=== PATIENT | female | born 1980 | race Caucasian/White ===

== ENCOUNTER 2018-06-22 16:38 | Emergency (ER) | payer BC, MEDICAID ==
--- NOTE | 2018-06-22 17:15 | EDM.PDOC ---
ED HPI GENERAL MEDICAL PROBLEM - General Chief Complaint: Back Pain or Injury Stated Complaint: BACK PAIN ON RT SIDE AND GOING DOWN THRU HER LEG Time Seen by Provider: 06/22/18 17:08 - History of Present Illness INITIAL COMMENTS - FREE TEXT/NARRATIVE: HISTORY AND PHYSICAL: History of present illness: Patient is a 37-year-old female with history chronic back pain who presents with a concern of left lower back pain slightly worse over the last week patient on multiple medicines for pain management and has a chronic pain syndrome patient is also on Suboxone. Patient states she's had some stress incontinence of bladder she states she's also felt slightly constipated she's had no numbness or weakness no new trauma or other complaints. Review of systems: As per history of present illness and below otherwise all systems reviewed and negative. Past medical history: As per history of present illness and as reviewed below otherwise noncontributory. Surgical history: As per history of present illness and as reviewed below otherwise noncontributory. Social history: No reported history of drug or alcohol abuse. Family history: As per history of present illness and as reviewed below otherwise noncontributory. Physical exam: HEENT: Atraumatic, normocephalic, pupils reactive, negative for conjunctival pallor or scleral icterus, mucous membranes moist, throat clear, neck supple, nontender, trachea midline. Lungs: Clear to auscultation, breath sounds equal bilaterally, chest nontender. Heart: S1S2, regular, negative for clicks, rubs, or JVD. Abdomen: Soft, nondistended, nontender. Negative for masses or hepatosplenomegaly. Negative for costovertebral tenderness. Pelvis: Stable nontender. Genitourinary: Deferred. Rectal: Deferred. Extremities: Atraumatic, negative for cords or calf pain. Neurovascular unremarkable. Neuro: Awake, alert, oriented. Cranial nerves II through XII unremarkable. Cerebellum unremarkable. Motor and sensory unremarkable throughout. Exam nonfocal. Back: Patient is able to stand on her toes back on her heels deep tendon reflexes are normal motor and sensory are normal patient is some mild tenderness is more over her left sciatic notch and left paravertebral region of the lumbar spine there is no vertebral body or point tenderness Diagnostics: CT lumbar spine Therapeutics: None Impression: # 1 chronic back pain #2 Definitive disposition and diagnosis as appropriate pending reevaluation and review of above. [] - Related Data Allergies Allergy/AdvReac Type Severity Reaction Status Date / Time ciprofloxacin [From Cipro] Allergy Rash Verified 06/22/18 17:08 hydroxyzine [From Vistaril] Allergy Agitation Verified 06/22/18 17:08 Sulfa (Sulfonamide Allergy Rash Verified 06/22/18 17:08 Antibiotics) Home Meds: Home Meds Gabapentin [Neurontin] 800 mg PO DAILY 06/24/17 [History] LORazepam 1 mg PO TID 06/24/17 [History] Sertraline [Zoloft] 100 mg PO DAILY 06/24/17 [History] cloNIDine HCl [Kapvay] 0.5 mg PO BID 06/07/18 [History] Buprenorphine HCl/Naloxone HCl [Suboxone 12 mg-3 mg Sl Film] 8 mg PO DAILY 06/22 [History] Past Medical History HEENT History: Reports: None Gastrointestinal History: Reports: None Other Gastrointestinal History: gall bladder out Genitourinary History: Reports: None PHARMACY TECHNOLOGIST History: Reports: Other (See Below) Other PHARMACY TECHNOLOGIST History: hysterectomy Musculoskeletal History: Reports: Other (See Below) Other Musculoskeletal History: right index finger fx with pins Psychiatric History: Reports: Anxiety, Bipolar, Depression, PTSD Other Psychiatric History: opoiod abuse, anger issues - Past Surgical History HEENT Surgical History: Reports: Adenoidectomy, Tonsillectomy Respiratory Surgical History: Reports: None GI Surgical History: Reports: Cholecystectomy Female Surgical History: Reports: Hysterectomy Musculoskeletal Surgical History: Reports: None Social & Family History - Family History Family Medical History: Noncontributory - Caffeine Use Caffeine Use: Reports: Soda ED ROS GENERAL - Review of Systems Review Of Systems: ROS reveals no pertinent complaints other than HPI. ED EXAM, GENERAL - Physical Exam Exam: See Below (Dictation) Course - Vital Signs Last Recorded V/S: Last Vital Signs Temp 36.4 C 06/22/18 16:38 Pulse 90 06/22/18 16:38 Resp 18 06/22/18 16:38 BP 130/87 06/22/18 16:38 Pulse Ox 95 06/22/18 16:38 - Orders/Labs/Meds Orders: Active Orders 24 hr Category Date Time Status Lumbar Spine w Cont [CT] Stat Exams 06/22/18 Taken Labs: Laboratory Tests 06/22/18 06/22/18 Range/Units 17:34 17:34 Sodium 139 (136-145) mmol/L Potassium 4.6 (3.5-5.1) mmol/L Chloride 105 (98-107) mmol/L Carbon Dioxide 29.4 (21.0-32.0) mmol/L BUN 13 (7.0-18.0) mg/dL Creatinine 0.8 (0.6-1.0) mg/dL Est Cr Clr Drug Dosing TNP Estimated GFR (MDRD) > 60.0 ml/min Glucose 133 H (74-106) mg/dL Calcium 9.6 (8.5-10.1) mg/dL Total Bilirubin 0.4 (0.2-1.0) mg/dL AST 43 H (15-37) IU/L ALT 66 H (14-63) IU/L Alkaline Phosphatase 114 (46-116) U/L Total Protein 7.5 (6.4-8.2) g/dL Albumin 3.7 (3.4-5.0) g/dL Globulin 3.8 H (2.0-3.5) g/dL Albumin/Globulin Ratio 1.0 L (1.3-2.8) HCG, Qual NEGATIVE (NEG) Meds: Medications Discontinued Medications Generic Name Dose Route Start Last Admin Trade Name Freq PRN Reason Stop Dose Admin Iopamidol 100 ml 06/22/18 18:39 06/22/18 18:40 Isovue-370 (76%) IVPUSH 06/22/18 18:40 100 ml ONETIME STA Administration Departure - Departure Time of Disposition: 19:44 Disposition: Home, Self-Care 01 Condition: Good Clinical Impression: Chronic back pain, Sciatica - Discharge Information *PRESCRIPTION DRUG MONITORING PROGRAM REVIEWED*: Not Applicable *COPY OF PRESCRIPTION DRUG MONITORING REPORT IN PATIENT DEENA: Not Applicable Referrals: PCP,None [Primary Care Provider] - Forms: ED Department Discharge Additional Instructions: The following information is given to patients seen in the emergency department who are being discharged to home. This information is to outline your options for follow-up care. We provide all patients seen in our emergency department with a follow-up referral. The need for follow-up, as well as the timing and circumstances, are variable depending upon the specifics of your emergency department visit. If you don't have a primary care physician on staff, we will provide you with a referral. We always advise you to contact your personal physician following an emergency department visit to inform them of the circumstance of the visit and for follow-up with them and/or the need for any referrals to a consulting specialist. The emergency department will also refer you to a specialist when appropriate. This referral assures that you have the opportunity for followup care with a specialist. All of these measure are taken in an effort to provide you with optimal care, which includes your followup. Under all circumstances we always encourage you to contact your private physician who remains a resource for coordinating your care. When calling for followup care, please make the office aware that this follow-up is from your recent emergency room visit. If for any reason you are refused follow-up, please contact the [facility] emergency department at and asked to speak to the emergency department charge nurse. [facility] [address] [place] [phone] The new current medications Medrol as prescribed follow-up primary care as discussed return as needed as discussed - My Orders Last 24 Hours: My Active Orders 06/22/18 Lumbar Spine w Cont [CT] Stat - Assessment/Plan Last 24 Hours: My Active Orders 06/22/18 Lumbar Spine w Cont [CT] Stat
[2018-06-22 18:02] LABS: CHLORIDE,CL 105 mmol/L (98-107); SODIUM,NA 139 mmol/L (136-145)
[2018-06-22] MEDS ORDERED: Iopamidol 755 Mg/ML 100 ML Bottle IVPUSH STA (18:39)
[2018-06-22 20:57] VITALS: BP 142/79
--- NOTE | 2018-06-23 14:42 | CT ---
EXAM DATE: 06/22/18 PATIENT'S AGE: 37 Patient: JAMEY JANSEN Facility: [place], [place] Site . Site : 1980 Study: CT Spine Lumbar W CONT [id number]/19/2018 6:37:22 PM Ordering Physician: Devora Mota Final Report: INDICATION: PAIN IN LOWER BACK, PT STATES CHRONIC LOWER BACK PAIN WITH INCONTINENCE ISSUES WORSENING FOR LAST 2 MONTHS. CAN`T HOLD BLADDER ANYMORE. CT LUMBAR SPINE WITH CONTRAST TECHNIQUE: Multidetector axial CT imaging was performed through the lumbar spine , following intravenous administration of 100 mL Isovue 370. Sagittal and coronal reconstructions were generated. FINDINGS: No acute fractures are identified. No destructive osseous lesions are demonstrated. Disc spaces appear preserved. Osseous alignment is within normal limits and no subluxation is seen. No definite spinal stenosis is seen. Paravertebral soft tissues are unremarkable. No abnormal enhancement is demonstrated. A tiny cyst is incidentally noted in the superior portion of the left kidney. IMPRESSION: No acute abnormality identified. No cause for the patient`s symptoms is demonstrated. DEVIN KONG MD [employer] Dictated by Marc Kong MD @ 06/22/2018 7:10:11 PM Dictated by: Marc Kong MD @ 06/22/2018 19:10:55 (Electronic Signature) Report Signed by Proxy. [facility]
== END 2018-06-22 19:50 | disposition home or self-care (01) ==
LOC: MW.ED 16:38
DX: M54.42 Lumbago with sciatica, left side (principal); Z88.1 Allergy status to other antibiotic agents; Z88.8 Allergy status to other drugs, medicaments and biological substances; Z88.2 Allergy status to sulfonamides; Z79.899 Other long term (current) drug therapy
CPT/HCPCS: 36415; 72132; 80053; 84703; 99284; Q9967

== ENCOUNTER 2018-11-30 09:40 | Emergency (ER) | payer BC, MEDICAID ==
[2018-11-30] MEDS ORDERED: Sodium Chloride 0.9% 1,000 ML IV ONE (10:00)
[2018-11-30] MEDS ORDERED: Ondansetron 4 MG/2 ML SDV IVPUSH ONE (10:00)
--- NOTE | 2018-11-30 10:02 | EDM.PDOC ---
ED HPI GENERAL MEDICAL PROBLEM - General Chief Complaint: Gastrointestinal Problem Stated Complaint: NIGHT SWEATS, NAUSEATED Time Seen by Provider: 11/30/18 09:53 - History of Present Illness INITIAL COMMENTS - FREE TEXT/NARRATIVE: HISTORY AND PHYSICAL: History of present illness: Patient's a 38-year-old white female with history of posttraumatic stress disorder, non-insulin dependent diabetes, opioid dependence, who presents with a concern of generalized fatigue nausea and weakness over the last week. She denies fever chills vomiting diarrhea urinary symptoms chest concerns breath or other concern she's been off her medications for approximately 4 months due to insurance interpersonal challenges blood sugar on arrival here was 151 Review of systems: As per history of present illness and below otherwise all systems reviewed and negative. Past medical history: As per history of present illness and as reviewed below otherwise noncontributory. Surgical history: As per history of present illness and as reviewed below otherwise noncontributory. Social history: No reported history of drug or alcohol abuse. Family history: As per history of present illness and as reviewed below otherwise noncontributory. Physical exam: HEENT: Atraumatic, normocephalic, pupils reactive, negative for conjunctival pallor or scleral icterus, mucous membranes dry, throat clear, neck supple, nontender, trachea midline. Lungs: Clear to auscultation, breath sounds equal bilaterally, chest nontender. Heart: S1S2, regular, negative for clicks, rubs, or JVD. Abdomen: Soft, nondistended, nontender. Negative for masses or hepatosplenomegaly. Negative for costovertebral tenderness. Pelvis: Stable nontender. Genitourinary: Deferred. Rectal: Deferred. Extremities: Atraumatic, negative for cords or calf pain. Neurovascular unremarkable. Neuro: Awake, alert, oriented. Cranial nerves II through XII unremarkable. Cerebellum unremarkable. Motor and sensory unremarkable throughout. Exam nonfocal. Diagnostics: CBC CMP UA hCG EKG chest x-ray Therapeutics: Saline 1 L bolus Zofran 4 mg IV Impression: #1 medical screening exam #2 mild dehydration #3 medical noncompliance #4 history of PTSD #5 history of non-insulin dependent diabetes #6 history of opioid dependence Definitive disposition and diagnosis as appropriate pending reevaluation and review of above. - Related Data Allergies Allergy/AdvReac Type Severity Reaction Status Date / Time ciprofloxacin [From Cipro] Allergy Rash Verified 11/30/18 10:10 hydroxyzine [From Vistaril] Allergy Agitation Verified 11/30/18 10:10 ondansetron [From Zofran] Allergy Other Verified 11/30/18 10:13 Sulfa (Sulfonamide Allergy Rash Verified 11/30/18 10:10 Antibiotics) Home Meds: Home Meds Gabapentin [Neurontin] 800 mg PO TID 06/24/17 [History] Sertraline [Zoloft] 100 mg PO DAILY 06/24/17 [History] cloNIDine HCl [Kapvay] 0.5 mg PO BID 06/07/18 [History] Buprenorphine HCl/Naloxone HCl [Suboxone 12 mg-3 mg Sl Film] 8 mg PO DAILY 06/22 [History] Past Medical History HEENT History: Reports: None Gastrointestinal History: Reports: None Other Gastrointestinal History: gall bladder out Genitourinary History: Reports: None PAN CLEANER History: Reports: Other (See Below) Other PAN CLEANER History: partial hysterectomy Musculoskeletal History: Reports: Other (See Below) Other Musculoskeletal History: right index finger fx with pins Psychiatric History: Reports: Anxiety, Bipolar, Depression, PTSD Other Psychiatric History: opoiod abuse, anger issues Endocrine/Metabolic History: Reports: Diabetes, Type II - Infectious Disease History Infectious Disease History: Reports: Chicken Pox - Past Surgical History HEENT Surgical History: Reports: Adenoidectomy, Tonsillectomy Respiratory Surgical History: Reports: None GI Surgical History: Reports: Cholecystectomy Female Surgical History: Reports: Hysterectomy Other Female Surgeries/Procedures: one ovary removed Musculoskeletal Surgical History: Reports: None Social & Family History - Family History Family Medical History: Noncontributory - Caffeine Use Caffeine Use: Reports: Soda ED ROS GENERAL - Review of Systems Review Of Systems: ROS reveals no pertinent complaints other than HPI. ED EXAM, GENERAL - Physical Exam Exam: See Below (See dictation) Course - Vital Signs Last Recorded V/S: Last Vital Signs Temp 35.9 C 11/30/18 09:49 Pulse 75 11/30/18 10:50 Resp 14 11/30/18 10:50 BP 155/80 H 11/30/18 10:50 Pulse Ox 99 11/30/18 10:50 - Orders/Labs/Meds Orders: Active Orders 24 hr Category Date Time Status EKG Documentation Completion [RC] STAT Care 11/30/18 10:00 Active Sodium Chloride 0.9% [Normal Saline] 1,000 ml Med 11/30/18 10:00 Active IV STAT Medication Orders Sodium Chloride (Normal Saline) 1,000 mls @ 999 mls/hr IV STAT ONE Stop: 11/30/18 11:00 Last Admin: 11/30/18 10:09 Dose: 999 mls/hr Labs: Laboratory Tests 11/30/18 11/30/18 11/30/18 Range/Units 09:54 09:55 09:55 WBC 10.28 (4.0-11.0) K/uL RBC 4.94 (4.30-5.90) M/uL Hgb 14.4 (12.0-16.0) g/dL Hct 43.3 (36.0-46.0) % MCV 87.7 (80.0-98.0) fL MCH 29.1 (27.0-32.0) pg MCHC 33.3 (31.0-37.0) g/dL RDW Std Deviation 43.2 (28.0-62.0) fl RDW Coeff of Nico 14 (11.0-15.0) % Plt Count 312 (150-400) K/uL MPV 11.30 (7.40-12.00) fL Neut % (Auto) 65.6 (48.0-80.0) % Lymph % (Auto) 22.6 (16.0-40.0) % [place] % (Auto) 6.2 (0.0-15.0) % Eos % (Auto) 5.3 (0.0-7.0) % Baso % (Auto) 0.3 (0.0-1.5) % Neut # (Auto) 6.8 H (1.4-5.7) K/uL Lymph # (Auto) 2.3 (0.6-2.4) K/uL [place] # (Auto) 0.6 (0.0-0.8) K/uL Eos # (Auto) 0.5 (0.0-0.7) K/uL Baso # (Auto) 0.0 (0.0-0.1) K/uL Nucleated RBC % 0.0 /100WBC Nucleated RBCs # 0 K/uL Sodium 139 (136-145) mmol/L Potassium 4.4 (3.5-5.1) mmol/L Chloride 107 (98-107) mmol/L Carbon Dioxide 24.8 (21.0-32.0) mmol/L BUN 13 (7.0-18.0) mg/dL Creatinine 0.7 (0.6-1.0) mg/dL Est Cr Clr Drug Dosing 89.26 mL/min Estimated GFR (MDRD) > 60.0 ml/min Glucose 166 H (74-106) mg/dL POC Glucose 156 H (60-110) mg/dL Calcium 10.0 (8.5-10.1) mg/dL Total Bilirubin 0.2 (0.2-1.0) mg/dL AST 76 H (15-37) IU/L ALT 117 H (14-63) IU/L Alkaline Phosphatase 115 (46-116) U/L Total Protein 7.8 (6.4-8.2) g/dL Albumin 3.6 (3.4-5.0) g/dL Globulin 4.2 H (2.6-4.0) g/dL Albumin/Globulin Ratio 0.9 (0.9-1.6) HCG, Qual (NEG) Urine Color Urine Appearance Urine pH (5.0-8.0) Ur Specific [place] (1.001-1.035) Urine Protein (NEGATIVE) mg/dL Urine Glucose (UA) (NEGATIVE) mg/dL Urine Ketones (NEGATIVE) mg/dL Urine Occult Blood (NEGATIVE) Urine Nitrite (NEGATIVE) Urine Bilirubin (NEGATIVE) Urine Urobilinogen (<2.0) EU/dL Ur Leukocyte Esterase (NEGATIVE) Urine RBC (0-2/HPF) Urine WBC (0-5/HPF) Ur Epithelial Cells (NONE-FEW) Urine Bacteria (NEGATIVE) Urine Mucus (NONE-MOD) Urine Opiates Screen (NEGATIVE) Ur Oxycodone Screen (NEGATIVE) Urine Methadone Screen (NEGATIVE) Ur Barbiturates Screen (NEGATIVE) Ur Phencyclidine Scrn (NEGATIVE) Ur Amphetamine Screen (NEGATIVE) U Methamphetamines Scrn (NEGATIVE) U Benzodiazepines Scrn (NEGATIVE) U Cocaine Metab Screen (NEGATIVE) U Marijuana (THC) Screen (NEGATIVE) 11/30/18 11/30/18 11/30/18 Range/Units 09:55 10:05 10:05 WBC (4.0-11.0) K/uL RBC (4.30-5.90) M/uL Hgb (12.0-16.0) g/dL Hct (36.0-46.0) % MCV (80.0-98.0) fL MCH (27.0-32.0) pg MCHC (31.0-37.0) g/dL RDW Std Deviation (28.0-62.0) fl RDW Coeff of Nico (11.0-15.0) % Plt Count (150-400) K/uL MPV (7.40-12.00) fL Neut % (Auto) (48.0-80.0) % Lymph % (Auto) (16.0-40.0) % [place] % (Auto) (0.0-15.0) % Eos % (Auto) (0.0-7.0) % Baso % (Auto) (0.0-1.5) % Neut # (Auto) (1.4-5.7) K/uL Lymph # (Auto) (0.6-2.4) K/uL [place] # (Auto) (0.0-0.8) K/uL Eos # (Auto) (0.0-0.7) K/uL Baso # (Auto) (0.0-0.1) K/uL Nucleated RBC % /100WBC Nucleated RBCs # K/uL Sodium (136-145) mmol/L Potassium (3.5-5.1) mmol/L Chloride (98-107) mmol/L Carbon Dioxide (21.0-32.0) mmol/L BUN (7.0-18.0) mg/dL Creatinine (0.6-1.0) mg/dL Est Cr Clr Drug Dosing mL/min Estimated GFR (MDRD) ml/min Glucose (74-106) mg/dL POC Glucose (60-110) mg/dL Calcium (8.5-10.1) mg/dL Total Bilirubin (0.2-1.0) mg/dL AST (15-37) IU/L ALT (14-63) IU/L Alkaline Phosphatase (46-116) U/L Total Protein (6.4-8.2) g/dL Albumin (3.4-5.0) g/dL Globulin (2.6-4.0) g/dL Albumin/Globulin Ratio (0.9-1.6) HCG, Qual NEGATIVE (NEG) Urine Color YELLOW Urine Appearance CLEAR Urine pH 6.0 (5.0-8.0) Ur Specific [place] 1.020 (1.001-1.035) Urine Protein NEGATIVE (NEGATIVE) mg/dL Urine Glucose (UA) NEGATIVE (NEGATIVE) mg/dL Urine Ketones NEGATIVE (NEGATIVE) mg/dL Urine Occult Blood SMALL H (NEGATIVE) Urine Nitrite NEGATIVE (NEGATIVE) Urine Bilirubin NEGATIVE (NEGATIVE) Urine Urobilinogen 1.0 (<2.0) EU/dL Ur Leukocyte Esterase NEGATIVE (NEGATIVE) Urine RBC 0-3 (0-2/HPF) Urine WBC 0-2 (0-5/HPF) Ur Epithelial Cells FEW (NONE-FEW) Urine Bacteria FEW (NEGATIVE) Urine Mucus LIGHT (NONE-MOD) Urine Opiates Screen NEGATIVE (NEGATIVE) Ur Oxycodone Screen NEGATIVE (NEGATIVE) Urine Methadone Screen NEGATIVE (NEGATIVE) Ur Barbiturates Screen NEGATIVE (NEGATIVE) Ur Phencyclidine Scrn NEGATIVE (NEGATIVE) Ur Amphetamine Screen NEGATIVE (NEGATIVE) U Methamphetamines Scrn NEGATIVE (NEGATIVE) U Benzodiazepines Scrn NEGATIVE (NEGATIVE) U Cocaine Metab Screen NEGATIVE (NEGATIVE) U Marijuana (THC) Screen NEGATIVE (NEGATIVE) Meds: Medications Generic Name Dose Route Start Last Admin Trade Name Freq PRN Reason Stop Dose Admin Sodium Chloride 1,000 mls @ 999 mls/hr 11/30/18 10:00 11/30/18 10:09 Normal Saline IV 11/30/18 11:00 999 mls/hr STAT ONE Administration Discontinued Medications Generic Name Dose Route Start Last Admin Trade Name Freq PRN Reason Stop Dose Admin Ondansetron HCl 4 mg 11/30/18 10:00 11/30/18 10:09 Zofran IVPUSH 11/30/18 10:01 Not Given ONETIME ONE Departure - Departure Time of Disposition: 10:58 Disposition: Home, Self-Care 01 Condition: Good Clinical Impression: Encounter for medical screening examination, Medical non-compliance, Viral syndrome - Discharge Information Referrals: PCP,None [Primary Care Provider] - Forms: ED Department Discharge Additional Instructions: The following information is given to patients seen in the emergency department who are being discharged to home. This information is to outline your options for follow-up care. We provide all patients seen in our emergency department with a follow-up referral. The need for follow-up, as well as the timing and circumstances, are variable depending upon the specifics of your emergency department visit. If you don't have a primary care physician on staff, we will provide you with a referral. We always advise you to contact your personal physician following an emergency department visit to inform them of the circumstance of the visit and for follow-up with them and/or the need for any referrals to a consulting specialist. The emergency department will also refer you to a specialist when appropriate. This referral assures that you have the opportunity for followup care with a specialist. All of these measure are taken in an effort to provide you with optimal care, which includes your followup. Under all circumstances we always encourage you to contact your private physician who remains a resource for coordinating your care. When calling for followup care, please make the office aware that this follow-up is from your recent emergency room visit. If for any reason you are refused follow-up, please contact the [facility] emergency department at and asked to speak to the emergency department charge nurse. [facility] [address] [place] [address] Push fluids follow-up primary care above call schedule appointment return as needed as discussed - My Orders Last 24 Hours: My Active Orders 11/30/18 10:00 EKG Documentation Completion [RC] STAT Sodium Chloride 0.9% [Normal Saline] 1,000 ml IV STAT - Assessment/Plan Last 24 Hours: My Active Orders 11/30/18 10:00 EKG Documentation Completion [RC] STAT Sodium Chloride 0.9% [Normal Saline] 1,000 ml IV STAT
[2018-11-30 10:32] LABS: CHLORIDE,CL 107 mmol/L (98-107); SODIUM,NA 139 mmol/L (136-145)
--- NOTE | 2018-11-30 10:46 | CR ---
INDICATION: Pain, cough, shortness of breath TECHNIQUE: Chest 2 views. COMPARISON: None FINDINGS: Examination is somewhat limited due to AP portable technique. The heart is normal in size given AP technique. The pulmonary vasculature is within normal limits. The lungs are clear without focal consolidation, pleural effusion or pneumothorax. IMPRESSION: Somewhat limited exam without acute cardiopulmonary process. Dictated by Liz Key MD @ 11/30/2018 10:44:35 AM Dictated by: Liz Key MD @ 11/30/2018 10:44:41 (Electronically Signed)
[2018-11-30 11:50] VITALS: BP 146/69
== END 2018-11-30 11:50 | disposition home or self-care (01) ==
LOC: MW.ED 09:40
DX: B34.9 Viral infection, unspecified (principal); E86.0 Dehydration; Z91.19 Patient's noncompliance with other medical treatment and regimen; F43.10 Post-traumatic stress disorder, unspecified; E11.9 Type 2 diabetes mellitus without complications; F41.9 Anxiety disorder, unspecified; F31.9 Bipolar disorder, unspecified; Z88.2 Allergy status to sulfonamides; Z88.1 Allergy status to other antibiotic agents; Z88.8 Allergy status to other drugs, medicaments and biological substances; Z79.899 Other long term (current) drug therapy
CPT/HCPCS: 36415; 71045; 80053; 80305; 81001; 82962; 84703; 85025; 87804; 93005; 96360; 96361; 99284; J7040; 99283

== ENCOUNTER 2019-06-13 00:13 | Emergency (ER) | payer BC, OTHER ==
[2019-06-13 00:26] VITALS: BP 131/54; PULSE 83
[2019-06-13] MEDS ORDERED: Sodium Chloride 0.9% 2.5 ML Syringe FLUSH PRN (00:51)
[2019-06-13] MEDS ORDERED: Sodium Chloride 0.9% 10 ML Syringe FLUSH PRN (00:51)
[2019-06-13] MEDS ORDERED: Sodium Chloride 0.9% 1,000 ML IV ONE (00:52)
[2019-06-13] MEDS ORDERED: Ondansetron 4 MG/2 ML SDV IVPUSH ONE (00:52)
[2019-06-13] MEDS ORDERED: Ketorolac 30 MG/ML SDV IVPUSH ONE (00:52)
--- NOTE | 2019-06-13 00:54 | EDM.PDOC ---
ED HPI GENERAL MEDICAL PROBLEM - General Chief Complaint: Abdominal Pain Stated Complaint: SIDE PAIN Time Seen by Provider: 06/13/19 00:33 - History of Present Illness INITIAL COMMENTS - FREE TEXT/NARRATIVE: HISTORY AND PHYSICAL: History of present illness: The patient is a 38-year-old female with a history of a total abdominal hysterectomy and no or GI problems as well as a cholecystectomy and presents with onset of left lower quadrant pain radiating to her flank and leg that started yesterday and then improved and then returned again. She had some nausea but no diarrhea and no fevers chills or urinary complaints. She has no right-sided abdominal pain no upper abdominal pain and no midline back pain. She says that she has chronic back issues but this is very different. She says it originated in the lower quadrant of the abdomen and then shot to her back and flank as well as to her leg. She is no weakness or numbness in her extremities. She has tried [id number] meds without success and is concerned so came here to the ED. The patient asthma she has no numbness or weakness in her lower extremities and she has not had any trauma. She says that she has normal bowel movements every day and they are not constipated diarrhea black or bloody Review of systems: As per history of present illness and below otherwise all systems reviewed and negative. Past medical history: As per history of present illness and as reviewed below otherwise noncontributory. Surgical history: As per history of present illness and as reviewed below otherwise noncontributory. Social history: No reported history of drug or alcohol abuse. Family history: As per history of present illness and as reviewed below otherwise noncontributory. Physical exam: General: Well-developed well-nourished overweight female who is nontoxic and vital signs are noted by me. She moves easily in the ED without distress. HEENT: Atraumatic, normocephalic, pupils reactive, negative for conjunctival pallor or scleral icterus, mucous membranes moist, throat clear, neck supple, nontender, trachea midline. Lungs: Clear to auscultation, breath sounds equal bilaterally, chest nontender. Heart: S1S2, regular rate and rhythm no overt murmurs Abdomen: Soft, nondistended, minimal tenderness on deep palpation in the left lower quadrant and I am unable to reproduce the pain exactly, there is no rebound or guarding and bowel sounds are hypoactive. Negative for masses or hepatosplenomegaly. Negative for costovertebral tenderness. Pelvis: Stable nontender. Genitourinary: Deferred. Rectal: Deferred. Extremities: Atraumatic, negative for cords or calf pain. Neurovascular unremarkable. Neuro: Awake, alert, oriented. Cranial nerves II through XII unremarkable. Cerebellum unremarkable. Motor and sensory unremarkable throughout. Exam nonfocal. Back: There is no midline back pain in the thoracic or lumbar area nor is there step-offs or defects and there is no CVA tenderness Diagnostics: UA CBC CMP CT scan of the abdomen and pelvis Therapeutics: IV fluids Toradol Impression: Left lower quadrant abdominal and flank pain stable etiology unclear Definitive disposition and diagnosis as appropriate pending reevaluation and review of above. Abdomen Pain Score (Numeric/FACES): 6 - Related Data Allergies Allergy/AdvReac Type Severity Reaction Status Date / Time ciprofloxacin [From Cipro] Allergy Rash Verified 06/13/19 00:54 hydroxyzine [From Vistaril] Allergy Agitation Verified 06/13/19 00:54 ondansetron [From Zofran] Allergy Other Verified 06/13/19 00:54 Sulfa (Sulfonamide Allergy Rash Verified 06/13/19 00:54 Antibiotics) Home Meds: Home Meds Gabapentin [Neurontin] 800 mg PO TID 06/24/17 [History] cloNIDine HCl [Kapvay] 0.5 mg PO BID 06/07/18 [History] Buprenorphine HCl/Naloxone HCl [Suboxone 12 mg-3 mg Sl Film] 8 mg PO DAILY 06/22 [History] Lisinopril 10 mg PO DAILY 06/13/19 [History] metFORMIN HCl [Metformin HCl ER] 1 tab PO DAILY 06/13/19 [History] Past Medical History HEENT History: Reports: None Cardiovascular History: Reports: None Respiratory History: Reports: None Gastrointestinal History: Reports: None Other Gastrointestinal History: gall bladder out Genitourinary History: Reports: None 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: Reports: , Other (See Below) Other 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: partial hysterectomy Musculoskeletal History: Reports: Other (See Below) Other Musculoskeletal History: right index finger fx with pins Neurological History: Reports: None Psychiatric History: Reports: Anxiety, Bipolar, Depression, PTSD Other Psychiatric History: opoiod abuse, anger issues Endocrine/Metabolic History: Reports: Diabetes, Type II Hematologic History: Reports: None Immunologic History: Reports: None Oncologic (Cancer) History: Reports: None Dermatologic History: Reports: None - Infectious Disease History Infectious Disease History: Reports: None - Past Surgical History HEENT Surgical History: Reports: Adenoidectomy, Tonsillectomy Respiratory Surgical History: Reports: None GI Surgical History: Reports: Cholecystectomy Female Surgical History: Reports: Hysterectomy Musculoskeletal Surgical History: Reports: None Social & Family History - Family History Family Medical History: Noncontributory - Tobacco Use Smoking Status *Q: Current Every Day Smoker Years of Tobacco use: 20 Packs/Tins Daily: 0.5 - Caffeine Use Caffeine Use: Reports: Soda - Recreational Drug Use Recreational Drug Use: No ED ROS GENERAL - Review of Systems Review Of Systems: ROS reveals no pertinent complaints other than HPI. ED EXAM, GENERAL - Physical Exam Exam: See Below (See dictation) Course - Vital Signs Last Recorded V/S: Last Vital Signs Temp 36.1 C 06/13/19 00:24 Pulse 83 06/13/19 00:24 Resp 18 06/13/19 00:24 BP 131/54 L 06/13/19 00:24 Pulse Ox 97 06/13/19 00:24 - Orders/Labs/Meds Orders: Active Orders 24 hr Category Date Time Status Sodium Chloride 0.9% [Normal Saline] 1,000 ml Med 06/13/19 00:52 Active IV STAT Sodium Chloride 0.9% [Saline Flush] Med 06/13/19 00:51 Active 10 ml FLUSH ASDIRECTED PRN Sodium Chloride 0.9% [Saline Flush] Med 06/13/19 00:51 Active 2.5 ml FLUSH ASDIRECTED PRN Saline Lock Insert [OM.PC] Stat Oth 06/13/19 00:51 Ordered Medication Orders Sodium Chloride (Normal Saline) 1,000 mls @ 999 mls/hr IV STAT ONE Stop: 06/13/19 01:52 Last Admin: 06/13/19 01:15 Dose: 999 mls/hr Sodium Chloride (Saline Flush) 10 ml FLUSH ASDIRECTED PRN PRN Reason: Keep Vein Open Sodium Chloride (Saline Flush) 2.5 ml FLUSH ASDIRECTED PRN PRN Reason: Keep Vein Open Labs: Laboratory Tests 06/13/19 06/13/19 06/13/19 Range/Units 00:20 01:04 01:04 WBC 11.45 H (4.0-11.0) K/uL RBC 4.97 (4.30-5.90) M/uL Hgb 14.4 (12.0-16.0) g/dL Hct 43.0 (36.0-46.0) % MCV 86.5 (80.0-98.0) fL MCH 29.0 (27.0-32.0) pg MCHC 33.5 (31.0-37.0) g/dL RDW Std Deviation 39.6 (28.0-62.0) fl RDW Coeff of Nico 13 (11.0-15.0) % Plt Count 303 (150-400) K/uL MPV 11.20 (7.40-12.00) fL Neut % (Auto) 54.9 (48.0-80.0) % Lymph % (Auto) 32.8 (16.0-40.0) % [place] % (Auto) 6.8 (0.0-15.0) % Eos % (Auto) 5.2 (0.0-7.0) % Baso % (Auto) 0.3 (0.0-1.5) % Neut # (Auto) 6.3 H (1.4-5.7) K/uL Lymph # (Auto) 3.8 H (0.6-2.4) K/uL [place] # (Auto) 0.8 (0.0-0.8) K/uL Eos # (Auto) 0.6 (0.0-0.7) K/uL Baso # (Auto) 0.0 (0.0-0.1) K/uL Sodium 142 (136-145) mmol/L Potassium 3.7 (3.5-5.1) mmol/L Chloride 105 (98-107) mmol/L Carbon Dioxide 27.8 (21.0-32.0) mmol/L BUN 14 (7.0-18.0) mg/dL Creatinine 0.7 (0.6-1.0) mg/dL Est Cr Clr Drug Dosing 89.26 mL/min Estimated GFR (MDRD) > 60.0 ml/min Glucose 124 H (74-106) mg/dL Calcium 9.4 (8.5-10.1) mg/dL Total Bilirubin 0.3 (0.2-1.0) mg/dL AST 117 H (15-37) IU/L ALT 207 H (14-63) IU/L Alkaline Phosphatase 117 H (46-116) U/L Total Protein 7.6 (6.4-8.2) g/dL Albumin 3.8 (3.4-5.0) g/dL Globulin 3.8 (2.6-4.0) g/dL Albumin/Globulin Ratio 1.0 (0.9-1.6) Urine Color YELLOW Urine Appearance CLEAR Urine pH 6.0 (5.0-8.0) Ur Specific [place] 1.025 (1.001-1.035) Urine Protein NEGATIVE (NEGATIVE) mg/dL Urine Glucose (UA) NEGATIVE (NEGATIVE) mg/dL Urine Ketones NEGATIVE (NEGATIVE) mg/dL Urine Occult Blood SMALL H (NEGATIVE) Urine Nitrite NEGATIVE (NEGATIVE) Urine Bilirubin NEGATIVE (NEGATIVE) Urine Urobilinogen 4.0 H (<2.0) EU/dL Ur Leukocyte Esterase NEGATIVE (NEGATIVE) Urine RBC 0-1 (0-2/HPF) Urine WBC 0-2 (0-5/HPF) Ur Epithelial Cells OCCASIONAL (NONE-FEW) Urine Bacteria RARE (NEGATIVE) Meds: Medications Generic Name Dose Route Start Last Admin Trade Name Freq PRN Reason Stop Dose Admin Sodium Chloride 1,000 mls @ 999 mls/hr 06/13/19 00:52 06/13/19 01:15 Normal Saline IV 06/13/19 01:52 999 mls/hr STAT ONE Administration Sodium Chloride 10 ml 06/13/19 00:51 Saline Flush FLUSH ASDIRECTED PRN Keep Vein Open Sodium Chloride 2.5 ml 06/13/19 00:51 Saline Flush FLUSH ASDIRECTED PRN Keep Vein Open Discontinued Medications Generic Name Dose Route Start Last Admin Trade Name Freq PRN Reason Stop Dose Admin Ketorolac Tromethamine 30 mg 06/13/19 00:52 06/13/19 01:17 Toradol IVPUSH 06/13/19 00:53 30 mg ONETIME ONE Administration Ondansetron HCl 4 mg 06/13/19 00:52 06/13/19 01:17 Zofran IVPUSH 06/13/19 00:53 Not Given ONETIME ONE Departure - Departure Time of Disposition: 01:44 Disposition: Home, Self-Care 01 Condition: Good Clinical Impression: Abdominal pain Qualifiers: Abdominal location: left lower quadrant Qualified Code(s): R10.32 - Left lower quadrant pain - Discharge Information Referrals: PCP,None [Primary Care Provider] - Forms: ED Department Discharge Additional Instructions: The following information is given to patients seen in the emergency department who are being discharged to home. This information is to outline your options for follow-up care. We provide all patients seen in our emergency department with a follow-up referral. The need for follow-up, as well as the timing and circumstances, are variable depending upon the specifics of your emergency department visit. If you don't have a primary care physician on staff, we will provide you with a referral. We always advise you to contact your personal physician following an emergency department visit to inform them of the circumstance of the visit and for follow-up with them and/or the need for any referrals to a consulting specialist. The emergency department will also refer you to a specialist when appropriate. This referral assures that you have the opportunity for followup care with a specialist. All of these measure are taken in an effort to provide you with optimal care, which includes your followup. Under all circumstances we always encourage you to contact your private physician who remains a resource for coordinating your care. When calling for followup care, please make the office aware that this follow-up is from your recent emergency room visit. If for any reason you are refused follow-up, please contact the [facility] emergency department at and ask to speak to the emergency department charge nurse. [facility] Primary care- Internal Medicine and Family [address] [address] Push hydration and increase fiber in your diet. Avoid caffeinated products and call the clinic on Saturday to schedule follow-up as we discussed with your provider and return to ER as needed and as discussed. Use any [id number] medications that you choose for pain management. - My Orders Last 24 Hours: My Active Orders 06/13/19 00:51 Sodium Chloride 0.9% [Saline Flush] 10 ml FLUSH ASDIRECTED PRN Sodium Chloride 0.9% [Saline Flush] 2.5 ml FLUSH ASDIRECTED PRN Saline Lock Insert [OM.PC] Stat 06/13/19 00:52 Sodium Chloride 0.9% [Normal Saline] 1,000 ml IV STAT - Assessment/Plan Last 24 Hours: My Active Orders 06/13/19 00:51 Sodium Chloride 0.9% [Saline Flush] 10 ml FLUSH ASDIRECTED PRN Sodium Chloride 0.9% [Saline Flush] 2.5 ml FLUSH ASDIRECTED PRN Saline Lock Insert [OM.PC] Stat 06/13/19 00:52 Sodium Chloride 0.9% [Normal Saline] 1,000 ml IV STAT
[2019-06-13 01:28] LABS: BLOOD UREA NITROGEN,BUN 14 mg/dL (7.0-18.0); CARBON DIOXIDE,CO2 27.8 mmol/L (21.0-32.0); CHLORIDE,CL 105 mmol/L (98-107); GLUCOSE RANDOM 124 mg/dL (74-106); POTASSIUM,K 3.7 mmol/L (3.5-5.1); SODIUM,NA 142 mmol/L (136-145)
--- NOTE | 2019-06-13 01:38 | CT ---
INDICATION: Left lower quadrant pain TECHNIQUE: CT Abdomen and pelvis without i.v. contrast. Coronal and sagittal reformats were obtained. COMPARISON: None FINDINGS: Lower chest: There is a 4 mm nodule in the left lower lobe on image 4. Liver: Unremarkable. Spleen: The spleen is mildly enlarged measuring 13.3 cm. Pancreas: Unremarkable. Gallbladder: Previous cholecystectomy noted without significant intra- or extrahepatic biliary ductal dilatation seen. Kidney: Unremarkable. No kidney or ureteral stones or obstruction seen. Adrenal: Unremarkable. Bowel: Unremarkable. The appendix is normal in appearance and size. Vascular: Unremarkable. Lymph: Unremarkable. Peritoneum: Unremarkable. No pneumoperitoneum is seen. No significant ascites is noted. Pelvis: The patient is status post prior hysterectomy. Soft tissue: Unremarkable. Bone: Unremarkable for age. IMPRESSION: 1. The spleen is mildly enlarged measuring 13.3 cm. Dictated by Wilder Dunlap MD @ 06/13/2019 1:37:21 AM Please note that all CT scans at this facility use dose modulation, iterative reconstruction, and/or weight-based dosing when appropriate to reduce radiation dose to as low as reasonably achievable. Dictated by: Wilder Dunlap MD @ 06/13/2019 01:37:47 (Electronically Signed)
== END 2019-06-13 02:05 | disposition home or self-care (01) ==
LOC: MW.ED 00:13
DX: R10.32 Left lower quadrant pain (principal); F41.9 Anxiety disorder, unspecified; F31.9 Bipolar disorder, unspecified; E11.9 Type 2 diabetes mellitus without complications; F17.210 Nicotine dependence, cigarettes, uncomplicated; Z88.1 Allergy status to other antibiotic agents; Z88.2 Allergy status to sulfonamides; Z88.8 Allergy status to other drugs, medicaments and biological substances; Z79.899 Other long term (current) drug therapy; Z79.84 Long term (current) use of oral hypoglycemic drugs
CPT/HCPCS: 74176; 80053; 81001; 85025; 96361; 96374; 99284; J1885; J7040

== ENCOUNTER 2019-06-19 11:16 | Emergency (ER) | payer SELFPAY ==
[2019-06-19 11:25] VITALS: BP 158/71
--- NOTE | 2019-06-19 11:42 | EDM.PDOC ---
ED HPI GENERAL MEDICAL PROBLEM - General Chief Complaint: Allergic Reaction Stated Complaint: SWOLLEN FACE Time Seen by Provider: 06/19/19 11:40 - History of Present Illness INITIAL COMMENTS - FREE TEXT/NARRATIVE: HISTORY AND PHYSICAL: History of present illness: Patient is a 38-year-old white female presents with her possible allergic reaction patient is a new face cream recently and now woke up with swelling with periorbital edema no shortness of breath tongue or lip swelling or other complaints. Review of systems: As per history of present illness and below otherwise all systems reviewed and negative. Past medical history: As per history of present illness and as reviewed below otherwise noncontributory. Surgical history: As per history of present illness and as reviewed below otherwise noncontributory. Social history: No reported history of drug or alcohol abuse. Family history: As per history of present illness and as reviewed below otherwise noncontributory. Physical exam: HEENT: Periorbital edema and erythema noted, normocephalic, pupils reactive, negative for conjunctival pallor or scleral icterus, mucous membranes moist, throat clear, neck supple, nontender, trachea midline. Lungs: Clear to auscultation, breath sounds equal bilaterally, chest nontender. Heart: S1S2, regular, negative for clicks, rubs, or JVD. Abdomen: Soft, nondistended, nontender. Negative for masses or hepatosplenomegaly. Negative for costovertebral tenderness. Pelvis: Stable nontender. Genitourinary: Deferred. Rectal: Deferred. Extremities: Atraumatic, negative for cords or calf pain. Neurovascular unremarkable. Neuro: Awake, alert, oriented. Cranial nerves II through XII unremarkable. Cerebellum unremarkable. Motor and sensory unremarkable throughout. Exam nonfocal. Diagnostics: None Therapeutics: None Impression: #1 allergic reaction Definitive disposition and diagnosis as appropriate pending reevaluation and review of above. - Related Data Allergies Allergy/AdvReac Type Severity Reaction Status Date / Time ciprofloxacin [From Cipro] Allergy Rash Verified 06/19/19 11:25 hydroxyzine [From Vistaril] Allergy Agitation Verified 06/19/19 11:25 ondansetron [From Zofran] Allergy Other Verified 06/19/19 11:25 Sulfa (Sulfonamide Allergy Rash Verified 06/19/19 11:25 Antibiotics) Home Meds: Home Meds Gabapentin [Neurontin] 800 mg PO TID 06/24/17 [History] cloNIDine HCl [Kapvay] 0.5 mg PO BID 06/07/18 [History] Buprenorphine HCl/Naloxone HCl [Suboxone 12 mg-3 mg Sl Film] 8 mg PO DAILY 06/22 [History] Lisinopril 10 mg PO DAILY 06/13/19 [History] metFORMIN HCl [Metformin HCl ER] 1 tab PO DAILY 06/13/19 [History] atorvaSTATin [Lipitor] 40 mg PO DAILY 06/19/19 [History] Past Medical History HEENT History: Reports: None Cardiovascular History: Reports: None Respiratory History: Reports: None Gastrointestinal History: Reports: None Other Gastrointestinal History: gall bladder out Genitourinary History: Reports: None 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: Reports: , Other (See Below) Other 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: partial hysterectomy Musculoskeletal History: Reports: Other (See Below) Other Musculoskeletal History: right index finger fx with pins Neurological History: Reports: None Psychiatric History: Reports: Anxiety, Bipolar, Depression, PTSD Other Psychiatric History: opoiod abuse, anger issues Endocrine/Metabolic History: Reports: Diabetes, Type II Hematologic History: Reports: None Immunologic History: Reports: None Oncologic (Cancer) History: Reports: None Dermatologic History: Reports: None - Infectious Disease History Infectious Disease History: Reports: Chicken Pox - Past Surgical History Head Surgeries/Procedures: Reports: None HEENT Surgical History: Reports: Adenoidectomy, Tonsillectomy Cardiovascular Surgical History: Reports: None Respiratory Surgical History: Reports: None GI Surgical History: Reports: Cholecystectomy Female Surgical History: Reports: Hysterectomy Endocrine Surgical History: Reports: None Neurological Surgical History: Reports: None Musculoskeletal Surgical History: Reports: None Oncologic Surgical History: Reports: None Dermatological Surgical History: Reports: None Social & Family History - Family History Family Medical History: Noncontributory - Tobacco Use Smoking Status *Q: Current Every Day Smoker Years of Tobacco use: 20 Packs/Tins Daily: 0.5 - Caffeine Use Caffeine Use: Reports: None - Recreational Drug Use Recreational Drug Use: No ED ROS ALLERGIC REACTION - Review of Systems Review Of Systems: ROS reveals no pertinent complaints other than HPI. ED EXAM GENERAL NO PERIP PULSE - Physical Exam Exam: See Below (See dictation) Course - Vital Signs Last Recorded V/S: Last Vital Signs Temp 36.0 C 06/19/19 11:22 Pulse 81 06/19/19 11:22 Resp 18 06/19/19 11:22 BP 158/71 H 06/19/19 11:22 Pulse Ox 97 06/19/19 11:22 Departure - Departure Time of Disposition: 11:51 Disposition: Home, Self-Care 01 Clinical Impression: Allergic reaction - Discharge Information Referrals: PCP,None [Primary Care Provider] - Additional Instructions: The following information is given to patients seen in the emergency department who are being discharged to home. This information is to outline your options for follow-up care. We provide all patients seen in our emergency department with a follow-up referral. The need for follow-up, as well as the timing and circumstances, are variable depending upon the specifics of your emergency department visit. If you don't have a primary care physician on staff, we will provide you with a referral. We always advise you to contact your personal physician following an emergency department visit to inform them of the circumstance of the visit and for follow-up with them and/or the need for any referrals to a consulting specialist. The emergency department will also refer you to a specialist when appropriate. This referral assures that you have the opportunity for followup care with a specialist. All of these measure are taken in an effort to provide you with optimal care, which includes your followup. Under all circumstances we always encourage you to contact your private physician who remains a resource for coordinating your care. When calling for followup care, please make the office aware that this follow-up is from your recent emergency room visit. If for any reason you are refused follow-up, please contact the [facility] emergency department at and asked to speak to the emergency department charge nurse. Medrol as prescribed Benadryl as directed avoid possible allergens as discussed follow-up primary medical doctor return as needed as discussed
== END 2019-06-19 12:10 | disposition home or self-care (01) ==
LOC: MW.ED 11:16
DX: T78.49XA Other allergy, initial encounter (principal); F17.210 Nicotine dependence, cigarettes, uncomplicated; F31.9 Bipolar disorder, unspecified; F41.9 Anxiety disorder, unspecified; E11.9 Type 2 diabetes mellitus without complications; F43.10 Post-traumatic stress disorder, unspecified; Z79.84 Long term (current) use of oral hypoglycemic drugs; Z88.1 Allergy status to other antibiotic agents; Z79.899 Other long term (current) drug therapy; Z88.8 Allergy status to other drugs, medicaments and biological substances; Z88.2 Allergy status to sulfonamides
CPT/HCPCS: 99283

== ENCOUNTER 2019-08-09 03:37 | Emergency (ER) | payer BC, OTHER ==
[2019-08-09] MEDS ORDERED: Sodium Chloride 0.9% 1,000 ML IV ONE (03:48)
[2019-08-09] MEDS ORDERED: Sodium Chloride 0.9% 2.5 ML Syringe FLUSH PRN (03:48)
[2019-08-09] MEDS ORDERED: Ondansetron 4 MG/2 ML SDV IVPUSH ONE ×2 (03:48→03:57)
[2019-08-09] MEDS ORDERED: Ketorolac 30 MG/ML SDV IVPUSH ONE (03:48)
[2019-08-09] MEDS ORDERED: Sodium Chloride 0.9% 10 ML Syringe FLUSH PRN (03:48)
[2019-08-09] MEDS ORDERED: diphenhydrAMINE 50 MG/ML SDV IVPUSH ONE (03:48)
--- NOTE | 2019-08-09 03:56 | EDM.PDOC ---
ED HPI GENERAL MEDICAL PROBLEM - General Chief Complaint: General Stated Complaint: DIZZINESS Time Seen by Provider: 08/09/19 03:39 - History of Present Illness INITIAL COMMENTS - FREE TEXT/NARRATIVE: HISTORY AND PHYSICAL: History of present illness: The patient is a 38-year-old female with a history of hypertension and non- insulin diabetes chronic back pain and hypercholesterolemia who presents with complaints of dizziness and lightheadedness that started about an hour prior to coming to the ED when she was trying to rest and go to sleep. She says that over the last few days she's had some intermittent nausea and vomiting but no fevers chest pain upper respiratory symptoms shortness of breath or diarrhea. She did not seek care from her provider for the intermittent nausea and vomiting and said that she was in bed trying to go to sleep and she rolled over and suddenly felt very dizzy and almost like she might pass out. She did not stand up and did not fall or pass out completely. She currently has no head neck or back pain but complains of pain at her right ear. She has no sinus pressure or drainage no neck pain no chest pain no breathing issues abdominal pain and only has some slight nausea. She tells me that she does have a history of panic attacks and certain medications trigger her panic attacks so she is very hesitant to receive medications here. She tried nothing prior to coming here for her symptoms. She has no focal neurologic changes in her extremities and no tingling or numbness. She has no history of sinus issues or inner ear disturbances. Patient says that when she moves her head or position changes she feels more symptomatic. Review of systems: As per history of present illness and below otherwise all systems reviewed and negative. Past medical history: As per history of present illness and as reviewed below otherwise noncontributory. Surgical history: As per history of present illness and as reviewed below otherwise noncontributory. Social history: No reported history of drug or alcohol abuse. Family history: As per history of present illness and as reviewed below otherwise noncontributory. Physical exam: General: Well-developed well-nourished overweight female who is nontoxic and vital signs are noted by me. I cannot elicit any large amount of nystagmus but there is a small amount the patient looks right. When I have the patient move her head rapidly side to side she says that that does cause dizziness and her symptoms. HEENT: Atraumatic, normocephalic, pupils reactive, negative for conjunctival pallor or scleral icterus, mucous membranes moist, throat clear, neck supple, nontender, trachea midline. EOMs were intact, there is no cervical adenopathy or nuchal rigidity no sinus tenderness and the TMs are normal bilaterally. There is no mastoid redness or tenderness. Lungs: Clear to auscultation, breath sounds equal bilaterally, chest nontender. Heart: S1S2, regular, negative for clicks, rubs, or JVD. Abdomen: Soft, nondistended, nontender. Negative for masses or hepatosplenomegaly. NABS. Pelvis: Deferred Genitourinary: Deferred. Rectal: Deferred. Extremities: Atraumatic, negative for cords or calf pain. Neurovascular unremarkable. No pedal edema Neuro: Awake, alert, oriented. Cranial nerves II through XII unremarkable. Cerebellum unremarkable. Motor and sensory unremarkable throughout. Exam nonfocal. Diagnostics: CT scan of the head CBC CMP UA with reflex orthostatic vitals EKG urine culture Therapeutics: IV fluids Toradol Benadryl Zofran potassium chloride Antivert On orthostatic vitals the patient's systolic blood pressure went from 149-106 from lying to standing and the heart rate also reciprocally changed from 61-91 area the patient was not symptomatic. The patient had told me that she has not been feeling well for the last couple of weeks with episodic vomiting and some upper abdominal discomfort but currently was not having any abdominal pain. I have discussed with her her lab tests which indicate a slight elevation in her liver enzymes and alkaline phosphatase within normal bilirubin and that she will likely need more follow- up for these test results if her pain returns. Impression: Dizziness and Orthostasis, mild hypokalemia Mild elevation of liver function tests Definitive disposition and diagnosis as appropriate pending reevaluation and review of above. - Related Data Allergies Allergy/AdvReac Type Severity Reaction Status Date / Time ciprofloxacin [From Cipro] Allergy Rash Verified 08/09/19 03:46 hydroxyzine [From Vistaril] Allergy Agitation Verified 08/09/19 03:46 Sulfa (Sulfonamide Allergy Rash Verified 08/09/19 03:46 Antibiotics) Home Meds: Home Meds Gabapentin [Neurontin] 400 mg PO TID 06/24/17 [History] cloNIDine HCl [Kapvay] 0.5 mg PO TID PRN 06/07/18 [History] Buprenorphine HCl/Naloxone HCl [Suboxone 12 mg-3 mg Sl Film] 8 mg PO DAILY 06/22 [History] Lisinopril 20 mg PO DAILY 06/13/19 [History] metFORMIN HCl [Metformin HCl ER] 500 tab PO DAILY 06/13/19 [History] atorvaSTATin [Lipitor] 40 mg PO DAILY 06/19/19 [History] Past Medical History HEENT History: Reports: None Cardiovascular History: Reports: High Cholesterol, Hypertension Respiratory History: Reports: None Gastrointestinal History: Reports: None Other Gastrointestinal History: gall bladder out Genitourinary History: Reports: None EMERGENCY ROOM SPECIALIST History: Reports: , Other (See Below) Other EMERGENCY ROOM SPECIALIST History: partial hysterectomy Musculoskeletal History: Reports: Other (See Below) Other Musculoskeletal History: right index finger fx with pins Neurological History: Reports: None Psychiatric History: Reports: Anxiety, Bipolar, Depression, PTSD Other Psychiatric History: opoiod abuse, anger issues Endocrine/Metabolic History: Reports: Diabetes, Type II Hematologic History: Reports: None Immunologic History: Reports: None Oncologic (Cancer) History: Reports: None Dermatologic History: Reports: None - Infectious Disease History Infectious Disease History: Reports: Chicken Pox - Past Surgical History Head Surgeries/Procedures: Reports: None HEENT Surgical History: Reports: Adenoidectomy, Tonsillectomy Cardiovascular Surgical History: Reports: None Respiratory Surgical History: Reports: None GI Surgical History: Reports: Cholecystectomy Female Surgical History: Reports: Hysterectomy Endocrine Surgical History: Reports: None Neurological Surgical History: Reports: None Musculoskeletal Surgical History: Reports: None Oncologic Surgical History: Reports: None Dermatological Surgical History: Reports: None Social & Family History - Family History Family Medical History: Noncontributory - Tobacco Use Smoking Status *Q: Current Every Day Smoker Years of Tobacco use: 18 Packs/Tins Daily: 1 - Caffeine Use Caffeine Use: Reports: None - Recreational Drug Use Recreational Drug Use: No ED ROS GENERAL - Review of Systems Review Of Systems: ROS reveals no pertinent complaints other than HPI. ED EXAM, GENERAL - Physical Exam Exam: See Below (see dictation) Course - Vital Signs Last Recorded V/S: Last Vital Signs Temp 36.1 C 08/09/19 03:37 Pulse 71 08/09/19 03:37 Resp 18 08/09/19 03:37 BP 145/84 H 08/09/19 03:37 Pulse Ox 99 08/09/19 03:37 Orthostatic Blood Pressure [ 106/61 Standing] Orthostatic Blood Pressure [ 148/79 Sitting] Orthostatic Blood Pressure [ 144/66 Supine] - Orders/Labs/Meds Orders: Active Orders 24 hr Category Date Time Status EKG Documentation Completion [RC] STAT Care 08/09/19 03:58 Active Orthostatic Vital Signs [RC] ASDIRECTED Care 08/09/19 03:48 Active CULTURE URINE [RM] Stat Lab 08/09/19 04:30 Received Sodium Chloride 0.9% [Saline Flush] Med 08/09/19 03:48 Active 10 ml FLUSH ASDIRECTED PRN Sodium Chloride 0.9% [Saline Flush] Med 08/09/19 03:48 Active 2.5 ml FLUSH ASDIRECTED PRN Saline Lock Insert [OM.PC] Stat Oth 08/09/19 03:48 Ordered Medication Orders Sodium Chloride (Saline Flush) 10 ml FLUSH ASDIRECTED PRN PRN Reason: Keep Vein Open Sodium Chloride (Saline Flush) 2.5 ml FLUSH ASDIRECTED PRN PRN Reason: Keep Vein Open Labs: Laboratory Tests 08/09/19 08/09/19 08/09/19 Range/Units 04:00 04:00 04:30 WBC 11.60 H (4.0-11.0) K/uL RBC 5.07 (4.30-5.90) M/uL Hgb 14.7 (12.0-16.0) g/dL Hct 45.0 (36.0-46.0) % MCV 88.8 (80.0-98.0) fL MCH 29.0 (27.0-32.0) pg MCHC 32.7 (31.0-37.0) g/dL RDW Std Deviation 42.8 (28.0-62.0) fl RDW Coeff of Nico 13 (11.0-15.0) % Plt Count 324 (150-400) K/uL MPV 11.00 (7.40-12.00) fL Neut % (Auto) 50.9 (48.0-80.0) % Lymph % (Auto) 35.7 (16.0-40.0) % Bates % (Auto) 7.3 (0.0-15.0) % Eos % (Auto) 5.8 (0.0-7.0) % Baso % (Auto) 0.3 (0.0-1.5) % Neut # (Auto) 5.9 H (1.4-5.7) K/uL Lymph # (Auto) 4.1 H (0.6-2.4) K/uL Bates # (Auto) 0.9 H (0.0-0.8) K/uL Eos # (Auto) 0.7 (0.0-0.7) K/uL Baso # (Auto) 0.0 (0.0-0.1) K/uL Nucleated RBC % 0.0 /100WBC Nucleated RBCs # 0 K/uL Sodium 141 (136-145) mmol/L Potassium 3.1 L (3.5-5.1) mmol/L Chloride 103 (98-107) mmol/L Carbon Dioxide 28.1 (21.0-32.0) mmol/L BUN 9 (7.0-18.0) mg/dL Creatinine 0.8 (0.6-1.0) mg/dL Est Cr Clr Drug Dosing TNP Estimated GFR (MDRD) > 60.0 ml/min Glucose 122 H (74-106) mg/dL Calcium 9.3 (8.5-10.1) mg/dL Total Bilirubin 0.5 (0.2-1.0) mg/dL AST 71 H (15-37) IU/L ALT 120 H (14-63) IU/L Alkaline Phosphatase 136 H (46-116) U/L Total Protein 7.7 (6.4-8.2) g/dL Albumin 3.8 (3.4-5.0) g/dL Globulin 3.9 (2.6-4.0) g/dL Albumin/Globulin Ratio 1.0 (0.9-1.6) Urine Color YELLOW Urine Appearance CLEAR Urine pH 6.0 (5.0-8.0) Ur Specific [place] 1.010 (1.001-1.035) Urine Protein NEGATIVE (NEGATIVE) mg/dL Urine Glucose (UA) NEGATIVE (NEGATIVE) mg/dL Urine Ketones NEGATIVE (NEGATIVE) mg/dL Urine Occult Blood TRACE-INTACT H (NEGATIVE) Urine Nitrite NEGATIVE (NEGATIVE) Urine Bilirubin NEGATIVE (NEGATIVE) Urine Urobilinogen 1.0 (<2.0) EU/dL Ur Leukocyte Esterase TRACE H (NEGATIVE) Urine RBC 0-1 (0-2/HPF) Urine WBC 1-3 (0-5/HPF) Ur Epithelial Cells OCCASIONAL (NONE-FEW) Urine Bacteria RARE (NEGATIVE) Meds: Medications Generic Name Dose Route Start Last Admin Trade Name Freq PRN Reason Stop Dose Admin Sodium Chloride 10 ml 08/09/19 03:48 Saline Flush FLUSH ASDIRECTED PRN Keep Vein Open Sodium Chloride 2.5 ml 08/09/19 03:48 Saline Flush FLUSH ASDIRECTED PRN Keep Vein Open Discontinued Medications Generic Name Dose Route Start Last Admin Trade Name Freq PRN Reason Stop Dose Admin Diphenhydramine HCl 50 mg 08/09/19 03:48 08/09/19 03:58 Benadryl IVPUSH 08/09/19 03:49 50 mg ONETIME ONE Administration Sodium Chloride 1,000 mls @ 999 mls/hr 08/09/19 03:48 08/09/19 03:58 Normal Saline IV 08/09/19 04:48 999 mls/hr STAT ONE Administration Ketorolac Tromethamine 30 mg 08/09/19 03:48 08/09/19 03:58 Toradol IVPUSH 08/09/19 03:49 30 mg ONETIME ONE Administration Meclizine HCl 25 mg 08/09/19 04:44 08/09/19 04:48 Antivert PO 08/09/19 04:45 25 mg ONETIME ONE Administration Ondansetron HCl 4 mg 08/09/19 03:48 Zofran IVPUSH 08/09/19 03:49 ONETIME ONE Ondansetron HCl 4 mg 08/09/19 03:57 08/09/19 04:00 Zofran IVPUSH 08/09/19 03:58 Not Given ONETIME ONE Potassium Chloride 40 meq 08/09/19 04:34 08/09/19 04:40 Klor-Con M20 PO 08/09/19 04:35 40 meq ONETIME ONE Administration Departure - Departure Time of Disposition: 04:51 Disposition: Home, Self-Care 01 Condition: Good Clinical Impression: Dizziness, Orthostasis - Discharge Information Referrals: PCP,None [Primary Care Provider] - Forms: ED Department Discharge Additional Instructions: The following information is given to patients seen in the emergency department who are being discharged to home. This information is to outline your options for follow-up care. We provide all patients seen in our emergency department with a follow-up referral. The need for follow-up, as well as the timing and circumstances, are variable depending upon the specifics of your emergency department visit. If you don't have a primary care physician on staff, we will provide you with a referral. We always advise you to contact your personal physician following an emergency department visit to inform them of the circumstance of the visit and for follow-up with them and/or the need for any referrals to a consulting specialist. The emergency department will also refer you to a specialist when appropriate. This referral assures that you have the opportunity for followup care with a specialist. All of these measure are taken in an effort to provide you with optimal care, which includes your followup. Under all circumstances we always encourage you to contact your private physician who remains a resource for coordinating your care. When calling for followup care, please make the office aware that this follow-up is from your recent emergency room visit. If for any reason you are refused follow-up, please contact the [facility] emergency department at and ask to speak to the emergency department charge nurse. [facility] Primary care- Internal Medicine and Family [address] [id number] Please call and connect with your provider or one of ours oozing resources given to above for further care and evaluation of these symptoms. Continue to monitor your symptoms and push hydration. Return to ER as needed and as discussed. Push hydration and avoid caffeinated products. Please fill and take the prescription for Antivert as it may help with your dizziness. - My Orders Last 24 Hours: My Active Orders 08/09/19 03:48 Orthostatic Vital Signs [RC] ASDIRECTED Sodium Chloride 0.9% [Saline Flush] 10 ml FLUSH ASDIRECTED PRN Sodium Chloride 0.9% [Saline Flush] 2.5 ml FLUSH ASDIRECTED PRN Saline Lock Insert [OM.PC] Stat 08/09/19 03:58 EKG Documentation Completion [RC] STAT 08/09/19 04:30 CULTURE URINE [RM] Stat - Assessment/Plan Last 24 Hours: My Active Orders 08/09/19 03:48 Orthostatic Vital Signs [RC] ASDIRECTED Sodium Chloride 0.9% [Saline Flush] 10 ml FLUSH ASDIRECTED PRN Sodium Chloride 0.9% [Saline Flush] 2.5 ml FLUSH ASDIRECTED PRN Saline Lock Insert [OM.PC] Stat 08/09/19 03:58 EKG Documentation Completion [RC] STAT 08/09/19 04:30 CULTURE URINE [RM] Stat
[2019-08-09 04:23] LABS: BLOOD UREA NITROGEN,BUN 9 mg/dL (7.0-18.0); CARBON DIOXIDE,CO2 28.1 mmol/L (21.0-32.0); CHLORIDE,CL 103 mmol/L (98-107); GLUCOSE RANDOM 122 mg/dL (74-106); POTASSIUM,K 3.1 mmol/L (3.5-5.1); SODIUM,NA 141 mmol/L (136-145)
--- NOTE | 2019-08-09 04:32 | CT ---
INDICATION: Dizziness TECHNIQUE: CT head without contrast. COMPARISON: None FINDINGS: CSF spaces: Within normal limits for age. Brain parenchyma: The burrell-white differentiation is normal. No sign of mass, hemorrhage, or midline shift. Skull base and calvarium: The visualized paranasal sinuses and mastoid air cells demonstrate no acute or significant findings. The visualized orbits are grossly unremarkable. No skull fractures. IMPRESSION: Unremarkable noncontrast head CT. Dictated by Lyndon Lamar MD @ 08/09/2019 4:30:33 AM Please note that all CT scans at this facility use dose modulation, iterative reconstruction, and/or weight-based dosing when appropriate to reduce radiation dose to as low as reasonably achievable. Dictated by: Lyndon Lamar MD @ 08/09/2019 04:30:41 (Electronically Signed)
[2019-08-09] MEDS ORDERED: Potassium Chloride 20 MEQ Tab.ER PO ONE (04:34)
[2019-08-09] MEDS ORDERED: Meclizine 25 MG Tab PO ONE (04:44)
[2019-08-09 05:04] VITALS: BP 127/64; PULSE 66
== END 2019-08-09 05:01 | disposition home or self-care (01) ==
LOC: MW.ED 03:37
DX: I95.1 Orthostatic hypotension (principal); E87.6 Hypokalemia; R94.5 Abnormal results of liver function studies; I10 Essential (primary) hypertension; E11.9 Type 2 diabetes mellitus without complications; E78.00 Pure hypercholesterolemia, unspecified; F17.200 Nicotine dependence, unspecified, uncomplicated; Z79.899 Other long term (current) drug therapy; Z79.84 Long term (current) use of oral hypoglycemic drugs
CPT/HCPCS: 36415; 70450; 80053; 81001; 85025; 87086; 93005; 96361; 96374; 96375; 99284; A9270; J1200; J1885; J7040

== ENCOUNTER 2020-04-07 06:34 | Emergency (ER) | payer SELFPAY ==
[2020-04-07] MEDS ORDERED: Phenazopyridine 200 MG Tab PO ONE (07:22)
[2020-04-07] MEDS ORDERED: Cefdinir 300 MG Cap PO ONE (07:22)
[2020-04-07] MEDS ORDERED: Ondansetron 4 MG Tab.DIS PO ONE (07:23)
[2020-04-07] MEDS ORDERED: Acetaminophen 325 MG Tab PO ONE (07:23)
[2020-04-07] MEDS ORDERED: Ibuprofen 600 MG Tab PO ONE (07:23)
[2020-04-07 07:57] LABS: BLOOD UREA NITROGEN,BUN 13 mg/dL (7.0-18.0); CARBON DIOXIDE,CO2 29.7 mmol/L (21.0-32.0); CHLORIDE,CL 106 mmol/L (98-107); GLUCOSE RANDOM 120 mg/dL (74-106); POTASSIUM,K 5.2 mmol/L (3.5-5.1); SODIUM,NA 143 mmol/L (136-145)
--- NOTE | 2020-04-07 08:16 | EDM.PDOC ---
ED [facility] GENERAL MEDICAL PROBLEM - General Chief Complaint: Genitourinary Problem Stated Complaint: BACK PAIN, PAINFUL URINATION, DISCHARGE Time Seen by Provider: 04/07/20 06:35 - History of Present Illness INITIAL COMMENTS - FREE TEXT/NARRATIVE: HISTORY AND PHYSICAL: History of present illness: This 39-year-old female presents emergency department complaining of right- sided flank pain, intermittent dysuria, and frequency. She denies having any significant fever symptoms. She has some mild nausea. No vomiting. She reports a past medical history of hyperlipidemia, drug abuse with drug dependence currently on medical assisted therapy with Suboxone, and hypertension. She also has chronic pain syndrome and she takes gabapentin. She denies any chest pain or shortness of breath. It is worse with jostling movements and causes flank pain when that happens. No other modifying, aggravating or alleviating factors. No other associated signs or symptoms. Review of systems: A 10-point review of systems, other than pertinent positives and negatives as stated per HPI, is otherwise negative. Past medical history: As per history of present illness and as reviewed below otherwise noncontributory. Surgical history: As per history of present illness and as reviewed below otherwise noncontributory. Social history: No reported history of drug or alcohol abuse. Family history: As per history of present illness and as reviewed below otherwise noncontributory. Physical exam: VITAL SIGNS: Reviewed. GENERAL: Mild distress. Appears uncomfortable HEAD: No signs of head trauma. EYES: Pupils are equal. Extraocular motions intact. EARS: Hearing grossly intact. MOUTH: Oropharynx is normal. NECK: No adenopathy, no JVD. CHEST: Chest with clear breath sounds bilaterally. No wheezes, rales, or rhonchi. CARDIAC: Regular rate and rhythm. Normal S1 and S2, without murmurs, gallops, or rubs. VASCULAR: Peripheral pulses normal and equal in all extremities. ABDOMEN: Soft, no rebound or guarding, no focal tenderness, there is right- sided CVA tenderness. MUSCULOSKELETAL: Good range of motion of all major joints. Extremities without clubbing, cyanosis or edema. NEUROLOGIC EXAM: Alert and oriented x 3. No focal sensory or motor deficits. Speech normal. Follows commands. PSYCHIATRIC: Mood normal. SKIN: No rash or lesions. Initial Differential Diagnosis & Plan: Differential diagnosis includes urinary tract infection, urethritis, candidiasis , gonorrhea, chlamydia, pyelonephritis. Clinical syndrome is consistent with pyelonephritis. The patient has not been taking her diabetes medicine. She will not take her metformin given the side effects that she is suffering. Because of this I will check her labs. I will give oral antibiotics and plan to discharge her home with antibiotics and Pyridium. Definitive disposition and diagnosis as appropriate pending reevaluation and review of above. right flank Pain Score (Numeric/FACES): 9 - Related Data Allergies Allergy/AdvReac Type Severity Reaction Status Date / Time ciprofloxacin [From Cipro] Allergy Rash Verified 04/07/20 06:44 hydroxyzine [From Vistaril] Allergy Agitation Verified 04/07/20 06:44 Sulfa (Sulfonamide Allergy Rash Verified 04/07/20 06:44 Antibiotics) Home Meds: Home Meds Gabapentin [Neurontin] 400 mg PO TID 06/24/17 [History] cloNIDine HCL [Kapvay] 0.5 mg PO TID PRN 06/07/18 [History] Buprenorphine HCl/Naloxone HCl [Suboxone 12 mg-3 mg Sl Film] 8 mg PO DAILY 06/22 [History] Lisinopril 20 mg PO DAILY 06/13/19 [History] metFORMIN HCl [Metformin HCl ER] 500 tab PO DAILY 06/13/19 [History] atorvaSTATin [Lipitor] 40 mg PO DAILY 06/19/19 [History] Phenazopyridine [Pyridium] 200 mg PO TID 3 Days #9 tab 04/07/20 [Rx] cephALEXin [Keflex] 1,000 mg PO TID 7 Days #42 capsule 04/07/20 [Rx] Past Medical History HEENT History: Reports: None Cardiovascular History: Reports: High Cholesterol, Hypertension Respiratory History: Reports: None Gastrointestinal History: Reports: None Other Gastrointestinal History: gall bladder out Genitourinary History: Reports: None DATA LEAD History: Reports: , Other (See Below) Other DATA LEAD History: partial hysterectomy Musculoskeletal History: Reports: Other (See Below) Other Musculoskeletal History: right index finger fx with pins Neurological History: Reports: None Psychiatric History: Reports: Anxiety, Bipolar, Depression, PTSD Other Psychiatric History: opoiod abuse, anger issues Endocrine/Metabolic History: Reports: Diabetes, Type II 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 Do You Have Enough Pump Supplies for Your Hospital Stay: No Hematologic History: Reports: None Immunologic History: Reports: None Oncologic (Cancer) History: Reports: None Dermatologic History: Reports: None - Infectious Disease History Infectious Disease History: Reports: None - Past Surgical History Head Surgeries/Procedures: Reports: None HEENT Surgical History: Reports: Adenoidectomy, Tonsillectomy Cardiovascular Surgical History: Reports: None Respiratory Surgical History: Reports: None GI Surgical History: Reports: Cholecystectomy Female Surgical History: Reports: Hysterectomy Endocrine Surgical History: Reports: None Neurological Surgical History: Reports: None Musculoskeletal Surgical History: Reports: None Oncologic Surgical History: Reports: None Dermatological Surgical History: Reports: None Social & Family History - Family History Family Medical History: Noncontributory - Tobacco Use Smoking Status *Q: Current Every Day Smoker Years of Tobacco use: 20 Packs/Tins Daily: 1 - Caffeine Use Caffeine Use: Reports: None - Recreational Drug Use Recreational Drug Use: No ED ROS GENERAL - Review of Systems Review Of Systems: See Below (noted) ED EXAM, RENAL/ - Physical Exam Exam: See Below (noted) Course - Vital Signs Last Recorded V/S: Last Vital Signs Temp 96.8 F L 04/07/20 06:45 Pulse 91 04/07/20 06:45 Resp 18 04/07/20 06:45 BP 135/85 04/07/20 06:45 Pulse Ox 98 04/07/20 06:45 - Orders/Labs/Meds Labs: Laboratory Tests 04/07/20 04/07/20 04/07/20 Range/Units 06:40 06:40 07:35 WBC 13.36 H (4.0-11.0) K/uL RBC 4.70 (4.30-5.90) M/uL Hgb 13.4 (12.0-16.0) g/dL Hct 42.1 (36.0-46.0) % MCV 89.6 (80.0-98.0) fL MCH 28.5 (27.0-32.0) pg MCHC 31.8 (31.0-37.0) g/dL RDW Std Deviation 42.1 (28.0-62.0) fl RDW Coeff of Nico 13 (11.0-15.0) % Plt Count 263 (150-400) K/uL MPV 10.80 (7.40-12.00) fL Neut % (Auto) 67.4 (48.0-80.0) % Lymph % (Auto) 18.9 (16.0-40.0) % [place] % (Auto) 9.9 (0.0-15.0) % Eos % (Auto) 3.7 (0.0-7.0) % Baso % (Auto) 0.1 (0.0-1.5) % Neut # (Auto) 9.0 H (1.4-5.7) K/uL Lymph # (Auto) 2.5 H (0.6-2.4) K/uL [place] # (Auto) 1.3 H (0.0-0.8) K/uL Eos # (Auto) 0.5 (0.0-0.7) K/uL Baso # (Auto) 0.0 (0.0-0.1) K/uL Nucleated RBC % 0.0 /100WBC Nucleated RBCs # 0 K/uL Sodium (136-145) mmol/L Potassium (3.5-5.1) mmol/L Chloride (98-107) mmol/L Carbon Dioxide (21.0-32.0) mmol/L BUN (7.0-18.0) mg/dL Creatinine (0.6-1.0) mg/dL Est Cr Clr Drug Dosing mL/min Estimated GFR (MDRD) ml/min Glucose (74-106) mg/dL Calcium (8.5-10.1) mg/dL Urine Color YELLOW Urine Appearance CLOUDY Urine pH 6.0 (5.0-8.0) Ur Specific [place] >= 1.030 (1.001-1.035) Urine Protein >=300 H (NEGATIVE) mg/dL Urine Glucose (UA) NEGATIVE (NEGATIVE) mg/dL Urine Ketones NEGATIVE (NEGATIVE) mg/dL Urine Occult Blood LARGE H (NEGATIVE) Urine Nitrite POSITIVE H (NEGATIVE) Urine Bilirubin NEGATIVE (NEGATIVE) Urine Urobilinogen 0.2 (<2.0) EU/dL Ur Leukocyte Esterase SMALL H (NEGATIVE) Urine RBC 90-100 (0-2/HPF) Urine WBC TO NUMEROUS TO COUNT H (0-5/HPF) Ur Epithelial Cells OCCASIONAL (NONE-FEW) Urine Bacteria FEW (NEGATIVE) Urine Mucus LIGHT (NONE-MOD) Urine HCG, Qual NEGATIVE (NEGATIVE) 06/04/20 Range/Units 07:35 WBC (4.0-11.0) K/uL RBC (4.30-5.90) M/uL Hgb (12.0-16.0) g/dL Hct (36.0-46.0) % MCV (80.0-98.0) fL MCH (27.0-32.0) pg MCHC (31.0-37.0) g/dL RDW Std Deviation (28.0-62.0) fl RDW Coeff of Nico (11.0-15.0) % Plt Count (150-400) K/uL MPV (7.40-12.00) fL Neut % (Auto) (48.0-80.0) % Lymph % (Auto) (16.0-40.0) % [place] % (Auto) (0.0-15.0) % Eos % (Auto) (0.0-7.0) % Baso % (Auto) (0.0-1.5) % Neut # (Auto) (1.4-5.7) K/uL Lymph # (Auto) (0.6-2.4) K/uL [place] # (Auto) (0.0-0.8) K/uL Eos # (Auto) (0.0-0.7) K/uL Baso # (Auto) (0.0-0.1) K/uL Nucleated RBC % /100WBC Nucleated RBCs # K/uL Sodium 143 (136-145) mmol/L Potassium 5.2 H (3.5-5.1) mmol/L Chloride 106 (98-107) mmol/L Carbon Dioxide 29.7 (21.0-32.0) mmol/L BUN 13 (7.0-18.0) mg/dL Creatinine 0.7 (0.6-1.0) mg/dL Est Cr Clr Drug Dosing 88.37 mL/min Estimated GFR (MDRD) > 60.0 ml/min Glucose 120 H (74-106) mg/dL Calcium 9.2 (8.5-10.1) mg/dL Urine Color Urine Appearance Urine pH (5.0-8.0) Ur Specific [place] (1.001-1.035) Urine Protein (NEGATIVE) mg/dL Urine Glucose (UA) (NEGATIVE) mg/dL Urine Ketones (NEGATIVE) mg/dL Urine Occult Blood (NEGATIVE) Urine Nitrite (NEGATIVE) Urine Bilirubin (NEGATIVE) Urine Urobilinogen (<2.0) EU/dL Ur Leukocyte Esterase (NEGATIVE) Urine RBC (0-2/HPF) Urine WBC (0-5/HPF) Ur Epithelial Cells (NONE-FEW) Urine Bacteria (NEGATIVE) Urine Mucus (NONE-MOD) Urine HCG, Qual (NEGATIVE) Meds: Medications Discontinued Medications Generic Name Dose Route Start Last Admin Trade Name Yobani PRN Reason Stop Dose Admin Acetaminophen 975 mg 04/07/20 07:23 04/07/20 07:37 Tylenol PO 04/07/20 07:24 975 mg NOW ONE Administration Cefdinir 600 mg 04/07/20 07:22 04/07/20 08:01 Omnicef PO 04/07/20 07:23 600 mg ONETIME ONE Administration Ibuprofen 600 mg 04/07/20 07:23 04/07/20 07:37 Motrin PO 04/07/20 07:24 600 mg ONETIME ONE Administration Ondansetron HCl 4 mg 04/07/20 07:23 04/07/20 07:38 Zofran Odt PO 04/07/20 07:24 Not Given ONETIME ONE Phenazopyridine HCl 200 mg 04/07/20 07:22 04/07/20 07:39 Pyridium PO 04/07/20 07:23 200 mg ONETIME ONE Administration - Re-Assessments/Exams Free Text/Narrative Re-Assessment/Exam: 04/07/20 08:43 Patient is doing better after treatment emergency department. She does not have evidence of DKA. Her potassium slightly elevated on her basic metabolic panel however I feel this is secondary to the blood draw not the actual hyperkalemia. Her renal function is normal. She does have a significant urinary tract infection. She does have some mild leukocytosis. This is all consistent with pyelonephritis. My diagnostic impression: 1. Pyelonephritis 2. Diabetes mellitus type 2 with hyperglycemia 3. History of substance dependence with medical assisted therapy Departure - Departure Time of Disposition: 08:44 Disposition: Home, Self-Care 01 Clinical Impression: Pyelonephritis, Diabetes mellitus type 2, uncontrolled - Discharge Information *PRESCRIPTION DRUG MONITORING PROGRAM REVIEWED*: Not Applicable *COPY OF PRESCRIPTION DRUG MONITORING REPORT IN PATIENT DEENA: Not Applicable Prescriptions: cephALEXin [Keflex] 1,000 mg PO TID 7 Days #42 capsule Phenazopyridine [Pyridium] 200 mg PO TID 3 Days #9 tab Instructions: Type 2 Diabetes Mellitus, Diagnosis, Adult, Pyelonephritis, Adult , [id number] Referrals: Sarahy Jesus PA [Primary Care Provider] - Forms: ED Department Discharge Additional Instructions: The following information is given to patients seen in the emergency department who are being discharged to home. This information is to outline your options for follow-up care. We provide all patients seen in our emergency department with a follow-up referral. The need for follow-up, as well as the timing and circumstances, are variable depending upon the specifics of your emergency department visit. If you don't have a primary care physician on staff, we will provide you with a referral. We always advise you to contact your personal physician following an emergency department visit to inform them of the circumstance of the visit and for follow-up with them and/or the need for any referrals to a consulting specialist. The emergency department will also refer you to a specialist when appropriate. This referral assures that you have the opportunity for follow-up care with a specialist. All of these measure are taken in an effort to provide you with optimal care, which includes your follow-up. Under all circumstances we always encourage you to contact your private physician who remains a resource for coordinating your care. When calling for follow-up care, please make the office aware that this follow-up is from your recent emergency room visit. If for any reason you are refused follow-up, please contact the [facility] Emergency Department at and asked to speak to the emergency department charge nurse. Thank you for coming to [facility] emergency department today. It was my pleasure to take care of you. You have been diagnosed with a pyelonephritis. This is a kidney infection. We will perform urine culture on your urine test to make sure the antibiotics we prescribed will be effective. Antibiotics we prescribed are quite inexpensive when you pay davila. If you have difficulty finding an antibiotic you can afford please have the pharmacist call us so we can discuss the best antibiotic choices for you. Please return to the emergency department for nausea, vomiting or any inability to take your medications. We are always happy to see you. Please follow-up with your doctor in the next 2 to 3 days for reevaluation. Sepsis Event Note - Evaluation Sepsis Screening Result: No Definite Risk - Focused Exam Vital Signs: Vital Signs Temp Pulse Resp BP Pulse Ox 04/07/20 06:45 96.8 F L 91 18 135/85 98 Date Exam was Performed: 04/07/20 Time Exam was Performed: 08:43
[2020-04-07 09:06] VITALS: BP 118/36; PULSE 81
== END 2020-04-07 08:55 | disposition home or self-care (01) ==
LOC: MW.ED 06:34
DX: N12 Tubulo-interstitial nephritis, not specified as acute or chronic (principal); E11.65 Type 2 diabetes mellitus with hyperglycemia; E78.5 Hyperlipidemia, unspecified; I10 Essential (primary) hypertension; F19.20 Other psychoactive substance dependence, uncomplicated; F17.210 Nicotine dependence, cigarettes, uncomplicated; Z88.1 Allergy status to other antibiotic agents; Z88.2 Allergy status to sulfonamides; Z79.84 Long term (current) use of oral hypoglycemic drugs; Z79.899 Other long term (current) drug therapy
CPT/HCPCS: 36415; 80048; 81001; 81025; 85025; 99284; A9270; 99283

== ENCOUNTER 2020-06-22 12:02 | Emergency (ER) | payer SELFPAY ==
[2020-06-22] MEDS ORDERED: Ibuprofen 400 MG Tab PO ONE (12:39)
[2020-06-22] MEDS ORDERED: Acetaminophen 500 MG Tab PO ONE (12:39)
--- NOTE | 2020-06-22 12:44 | EDM.PDOC ---
ED HPI GENERAL MEDICAL PROBLEM - General Chief Complaint: Lower Extremity Injury/Pain Stated Complaint: LT KNEE PAIN UP LEG Time Seen by Provider: 06/22/20 12:31 Source of Information: Reports: Patient, Old Records History Limitations: Reports: No Limitations - History of Present Illness INITIAL COMMENTS - FREE TEXT/NARRATIVE: 39-year-old female with past medical history of sciatica, Suboxone therapy, type 2 diabetes mellitus presenting with left knee pain. 4-day history of pain to the posterior element the left knee without any associated trauma. Worse with walking and bearing weight, better with rest. Pain is intermittent, nonradiating. Denies any associated swelling, erythema, deformity, calf or thigh pain or swelling, fever, or chills. Intermittently taking Tylenol Motrin at home. No history of venous thromboembolism. Past medical history: Reviewed, no additional pertinent history. Surgical history: Reviewed in system, no additional pertinent history. Social history: Reviewed in system, no additional pertinent history. Family history: Reviewed in system, no additional pertinent history. PHYSICAL EXAM Vital signs reviewed. Nursing notes reviewed. Constitutional: Awake, alert, non-distressed. Head: Normocephalic, atraumatic. Eyes: EOMI, conjunctiva normal, no discharge, no scleral icterus. Ears, Nose, Throat: External ears and nose normal, moist oral mucosa. Cardiovascular: 2+ DP pulses bilaterally, capillary refill less than 2 seconds. Bilateral lower extremities warm and well-perfused. Pulmonary: normal work of breathing, no accessory muscle use. Abdomen/GI: Soft, nontender, nondistended, no guarding or rigidity, no masses. Musculoskeletal: No deformities. Full active range of motion of the left knee joint. Mild tenderness to palpation to the lateral aspect of the left patella and the posterior aspect of the left knee. Left knee joint exhibits no effu brenda, erythema, or deformity. Negative anterior drawer test, negative Espinoza test. Integumentary: Appropriate color for ethnicity, warm, dry, no pallor or jaundice, no rash. Neurologic: Alert, answering questions appropriately, normal speech, no facial droop, moving all extremities well. Psychiatric: Appropriate mood and affect, normal thought process. left upper leg Pain Score (Numeric/FACES): 9 - Related Data Allergies Allergy/AdvReac Type Severity Reaction Status Date / Time ciprofloxacin [From Cipro] Allergy Rash Verified 06/22/20 12:14 hydroxyzine [From Vistaril] Allergy Agitation Verified 06/22/20 12:14 Sulfa (Sulfonamide Allergy Rash Verified 06/22/20 12:14 Antibiotics) Home Meds: Home Meds Gabapentin [Neurontin] 300 mg PO TID 06/24/17 [History] cloNIDine HCL [Kapvay] 1 mg PO BID PRN 06/07/18 [History] Buprenorphine HCl/Naloxone HCl [Suboxone 12 mg-3 mg Sl Film] 8 mg PO DAILY 06/22/18 [History] Lisinopril 20 mg PO DAILY 06/13/19 [History] metFORMIN HCl [Metformin HCl ER] 500 mg PO DAILY 06/13/19 [History] atorvaSTATin [Lipitor] 40 mg PO DAILY 06/19/19 [History] Past Medical History HEENT History: Reports: None Cardiovascular History: Reports: High Cholesterol, Hypertension Respiratory History: Reports: None Gastrointestinal History: Reports: None Other Gastrointestinal History: gall bladder out Genitourinary History: Reports: None SUBGRADE TESTER History: Reports: , Other (See Below) Other SUBGRADE TESTER History: partial hysterectomy Musculoskeletal History: Reports: Other (See Below) Other Musculoskeletal History: right index finger fx with pins Neurological History: Reports: None Psychiatric History: Reports: Anxiety, Bipolar, Depression, PTSD Other Psychiatric History: opoiod abuse, anger issues Endocrine/Metabolic History: Reports: Diabetes, Type II 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: None Hematologic History: Reports: None Immunologic History: Reports: None Oncologic (Cancer) History: Reports: None Dermatologic History: Reports: None - Infectious Disease History Infectious Disease History: Reports: None - Past Surgical History Head Surgeries/Procedures: Reports: None HEENT Surgical History: Reports: Adenoidectomy, Tonsillectomy Cardiovascular Surgical History: Reports: None Respiratory Surgical History: Reports: None GI Surgical History: Reports: Cholecystectomy Female Surgical History: Reports: Hysterectomy Endocrine Surgical History: Reports: None Neurological Surgical History: Reports: None Musculoskeletal Surgical History: Reports: None Oncologic Surgical History: Reports: None Dermatological Surgical History: Reports: None Social & Family History - Family History Family Medical History: Noncontributory - Tobacco Use Smoking Status *Q: Current Every Day Smoker Years of Tobacco use: 27 Packs/Tins Daily: 1 - Caffeine Use Caffeine Use: Reports: None - Recreational Drug Use Recreational Drug Use: No Review of Systems - Review of Systems Review Of Systems: See Below ED EXAM, GENERAL - Physical Exam Exam: See Below Course - Vital Signs Text/Narrative:: Patient hemodynamically stable, afebrile, well-appearing, looks nontoxic. Differential diagnosis includes but is not limited to: Osteoarthritis, DVT, septic arthritis, gout, pseudogout, Jimenez's cyst, fracture, dislocation, autoimmune arthritis, etc. Clinically, low suspicion for DVT given pain is isolated to the knee. No redness, edema, or pain to the left thigh or calf. The left knee joint is not swollen, warm to the touch, or erythematous which argues against septic arthritis, inflammatory or autoimmune process, gout, or pseudogout. There is no evidence of a Jimenez's cyst by exam. X-rays of the knee demonstrated no joint effusion or evidence of a bony injury. Etiology of knee pain is not entirely clear although I am suspicious for osteoarthritis given that the patient has been diagnosed with this in the past. There is no effusion that needs to be drained and I have no suspicion at the moment for DVT, septic arthritis, or any other malignant or emergency medical condition. We will apply an Joce wrap compression bandage to the knee and I will recommend [id number] acetaminophen and ibuprofen for pain along with topical Voltaren gel and heating pads. We will have the patient follow-up with a primary medical doctor for routine follow-up. Plan: Patient is stable to discharge home with outpatient primary care clinic follow-up. Strict emergency department return precautions were provided, patient indicated understanding. All questions were answered prior to departure. Discharged in good condition. Last Recorded V/S: Last Vital Signs Temp 35.8 C L 06/22/20 12:13 Pulse 110 H 06/22/20 12:13 Resp 18 06/22/20 12:13 BP 126/54 L 06/22/20 12:13 Pulse Ox 95 06/22/20 12:13 - Orders/Labs/Meds Meds: Medications Discontinued Medications Generic Name Dose Route Start Last Admin Trade Name Yobani PRN Reason Stop Dose Admin Acetaminophen 1,000 mg 06/22/20 12:39 06/22/20 12:44 Tylenol Extra Strength PO 06/22/20 12:40 1,000 mg ONETIME ONE Administration Ibuprofen 400 mg 06/22/20 12:39 06/22/20 12:44 Motrin PO 06/22/20 12:40 400 mg ONETIME ONE Administration Departure - Departure Time of Disposition: 13:42 Disposition: Home, Self-Care 01 Condition: Good Clinical Impression: Left knee pain Qualifiers: Chronicity: acute Qualified Code(s): M25.562 - Pain in left knee - Discharge Information *PRESCRIPTION DRUG MONITORING PROGRAM REVIEWED*: Not Applicable *COPY OF PRESCRIPTION DRUG MONITORING REPORT IN PATIENT DEENA: Not Applicable Instructions: Acute Knee Pain, Adult Referrals: Sarahy Jesus PA [Primary Care Provider] - 1 Week (For follow-up of knee pain, as needed.) Forms: ED Department Discharge Care Plan Goals: You were seen in the emergency department for knee pain. X-rays did not demonstrate a broken bone or fluid/effusion inside the knee joint. You do not appear to have an infected knee or any evidence of blood clot by our examination. We are going to wrap your knee with a compression bandage and have you follow-up with a primary medical clinic for reevaluation. You can elevate your knee, take [id number] Tylenol, ibuprofen, Voltaren gel, lidocaine patches, and use heating pads as you like. If your pain worsens or if you develop fever, redness, or swelling of the knee joint, you should come back to the ER immediately. Please return the emergency department immediately if your symptoms worsen or if you feel worse. Thank you for choosing the [facility] emergency department in [facility] for your medical needs today. It was a pleasure caring for you. The following information is given to patients seen in the emergency department who are being discharged. This information is to outline your options for follow-up care. We provide all patients seen in our emergency department with a follow-up referral. The need for follow-up, as well as the timing and circumstances, are variable depending upon the specifics of your emergency department visit. If you don't have a primary care physician on staff, we will provide you with a referral. We always advise you to contact your personal physician following an emergency department visit to inform them of the circumstance of the visit and for follow-up with them and/or the need for any referrals to a consulting specialist. The emergency department will also refer you to a specialist when appropriate. This referral assures that you have the opportunity for follow-up care with a specialist. All of these measure are taken in an effort to provide you with optimal care, which includes your follow-up. Under all circumstances we always encourage you to contact your private physician who remains a resource for coordinating your care. When calling for follow-up care, please make the office aware that this follow-up is from your recent emergency room visit. If for any reason you are refused follow-up, please contact the [facility] Emergency Department at and asked to speak to the emergency department charge nurse. If you do not have a primary care physician that is caring for you, you can contact these clinics below to set up an appointment to establish care: [facility] - Primary Care [address] [place] [id number] [facility] [address] [place] [id number] Sepsis Event Note (ED) - Evaluation Sepsis Screening Result: No Definite Risk - Focused Exam Vital Signs: Vital Signs Temp Pulse Resp BP Pulse Ox 06/22/20 12:13 35.8 C L 110 H 18 126/54 L 95
--- NOTE | 2020-06-22 13:19 | CR ---
Left knee: AP, lateral and sunrise patellar views left knee were obtained. Parison: No prior left knee study. Medial and lateral joint compartments are maintained in height. Patellofemoral joint appears within normal limits. No joint effusion is seen. Spur is noted at the attachment of the quadriceps tendon to the patella. No discrete fracture or other abnormality is appreciated. Impression: 1. Small patellar spur as noted above. 2. No additional abnormality is appreciated on left knee exam. Diagnostic code #2 This report was dictated in MDT
[2020-06-22 14:10] VITALS: BP 99/52; PULSE 81
== END 2020-06-22 14:10 | disposition home or self-care (01) ==
LOC: MW.ED 12:02
DX: M25.562 Pain in left knee (principal); I10 Essential (primary) hypertension; E78.00 Pure hypercholesterolemia, unspecified; E11.9 Type 2 diabetes mellitus without complications; F17.210 Nicotine dependence, cigarettes, uncomplicated; Z79.84 Long term (current) use of oral hypoglycemic drugs; Z79.899 Other long term (current) drug therapy; Z90.710 Acquired absence of both cervix and uterus; Z90.49 Acquired absence of other specified parts of digestive tract; Z88.2 Allergy status to sulfonamides; Z88.1 Allergy status to other antibiotic agents; Z88.8 Allergy status to other drugs, medicaments and biological substances
CPT/HCPCS: 73562; 99283; A9270; 99282

== ENCOUNTER 2021-05-28 21:05 | Emergency (ER) | payer BC ==
--- NOTE | 2021-05-28 21:38 | EDM.PDOC ---
ED HPI GENERAL MEDICAL PROBLEM - General Chief Complaint: Lower Extremity Injury/Pain Stated Complaint: LT KNEE PAIN Time Seen by Provider: 05/28/21 21:05 Source of Information: Reports: Patient History Limitations: Reports: No Limitations - History of Present Illness INITIAL COMMENTS - FREE TEXT/NARRATIVE: 40-year-old female presents for left knee injury. 2 days ago patient was walking down some stairs when she hit her knee against a post. She notes a continued achy dull pain in the lateral and posterior aspect of the knee. It is not worse with palpation but is worse with bearing weight and moving the knee. She denies any other injuries. She has tried Motrin at home with some relief. Left Knee Pain Score (Numeric/FACES): 7 - Related Data Allergies Allergy/AdvReac Type Severity Reaction Status Date / Time ciprofloxacin [From Cipro] Allergy Rash Verified 05/28/21 21:23 hydroxyzine [From Vistaril] Allergy Agitation Verified 05/28/21 21:23 Sulfa (Sulfonamide Allergy Rash Verified 05/28/21 21:23 Antibiotics) Home Meds: Home Meds Gabapentin [Neurontin] 300 mg PO TID 06/24/17 [History] cloNIDine HCL [Kapvay] 1 mg PO BID PRN 06/07/18 [History] Buprenorphine HCl/Naloxone HCl [Suboxone 12 mg-3 mg Sl Film] 8 mg PO DAILY 06/22/18 [History] Lisinopril 20 mg PO DAILY 06/13/19 [History] metFORMIN HCl [Metformin HCl ER] 500 mg PO DAILY 06/13/19 [History] atorvaSTATin [Lipitor] 40 mg PO DAILY 06/19/19 [History] Past Medical History HEENT History: Reports: None Cardiovascular History: Reports: High Cholesterol, Hypertension Respiratory History: Reports: None Gastrointestinal History: Reports: None Other Gastrointestinal History: gall bladder out Genitourinary History: Reports: None ELECTROLYTIC ETCHER History: Reports: , Other (See Below) Other ELECTROLYTIC ETCHER History: partial hysterectomy Musculoskeletal History: Reports: Other (See Below) Other Musculoskeletal History: right index finger fx with pins, chronic knee pain Neurological History: Reports: None Psychiatric History: Reports: Anxiety, Bipolar, Depression, PTSD Other Psychiatric History: opoiod abuse, anger issues Endocrine/Metabolic History: Reports: Diabetes, Type II, Obesity/BMI 30+ Insulin Pump Model and Surgery Scheduling Coordinator: None Hematologic History: Reports: None Immunologic History: Reports: None Oncologic (Cancer) History: Reports: None Dermatologic History: Reports: None - Infectious Disease History Infectious Disease History: Reports: None - Past Surgical History Head Surgeries/Procedures: Reports: None HEENT Surgical History: Reports: Adenoidectomy, Tonsillectomy Cardiovascular Surgical History: Reports: None Respiratory Surgical History: Reports: None GI Surgical History: Reports: Cholecystectomy Female Surgical History: Reports: Hysterectomy Other Female Surgeries/Procedures: one ovary removed Endocrine Surgical History: Reports: None Neurological Surgical History: Reports: None Musculoskeletal Surgical History: Reports: None Oncologic Surgical History: Reports: None Dermatological Surgical History: Reports: None Social & Family History - Family History Family Medical History: No Pertinent Family History - Caffeine Use Caffeine Use: Reports: None - Recreational Drug Use Recreational Drug Use: Yes Drug Use in Last 12 Months: No Review of Systems - Review of Systems Review Of Systems: Comprehensive ROS is negative, except as noted in HPI. ED EXAM, GENERAL - Physical Exam Exam: See Below Exam Limited By: No Limitations General Appearance: Alert, WD/WN, No Apparent Distress Ears: Hearing Grossly Normal Throat/Mouth: Normal Voice, No Airway Compromise Head: Atraumatic, Normocephalic Neck: Normal Inspection Respiratory/Chest: No Respiratory Distress, No Accessory Muscle Use Cardiovascular: Normal Peripheral Pulses Extremities: Normal Inspection, Other (no joint line TTP, no palpable effusion, normal ROM with some pain, no overt swelling) Psychiatric: Normal Affect, Normal Mood Skin Exam: Warm, Dry, Intact, Normal Color Course - Vital Signs Last Recorded V/S: Last Vital Signs Temp 97.3 F 05/28/21 21:17 Pulse 89 05/28/21 21:17 Resp 14 05/28/21 21:17 BP 131/71 05/28/21 21:17 Pulse Ox 100 05/28/21 21:17 - Orders/Labs/Meds Orders: Active Orders 24 hr Category Date Time Status Joce Bandage [RC] ONETIME Care 05/28/21 22:13 Ordered - Re-Assessments/Exams Free Text/Narrative Re-Assessment/Exam: 05/28/21 21:37 We will get x-ray imaging of the knee to ensure no bony abnormalities. Spoke with patient regarding RICE therapy. Spoke with patient about follow-up with PMD for potential MRI if symptoms not improving over the next several days. Offered analgesia and muscle relaxant but patient declines. 05/28/21 22:13 X-ray imaging is unremarkable. Departure - Departure Time of Disposition: 22:13 Disposition: Home, Self-Care 01 Condition: Good Clinical Impression: Knee injury Qualifiers: Encounter type: initial encounter Laterality: left Qualified Code(s): S89.92XA - Unspecified injury of left lower leg, initial encounter - Discharge Information Instructions: Knee Sprain, Adult, [id number] Referrals: Sarahy Jesus PA [Primary Care Provider] - Forms: ED Department Discharge Additional Instructions: The following information is given to patients seen in the emergency department who are being discharged to home. This information is to outline your options for follow-up care. We provide all patients seen in our emergency department with a follow-up referral. The need for follow-up, as well as the timing and circumstances, are variable depending upon the specifics of your emergency department visit. If you don't have a primary care physician on staff, we will provide you with a referral. We always advise you to contact your personal physician following an emergency department visit to inform them of the circumstance of the visit and for follow-up with them and/or the need for any referrals to a consulting specialist. The emergency department will also refer you to a specialist when appropriate. This referral assures that you have the opportunity for follow-up care with a specialist. All of these measure are taken in an effort to provide you with optimal care, which includes your follow-up. Under all circumstances we always encourage you to contact your private physician who remains a resource for coordinating your care. When calling for follow-up care, please make the office aware that this follow-up is from your recent emergency room visit. If for any reason you are refused follow-up, please contact the [facility] Emergency Department at and asked to speak to the emergency department charge nurse. Please follow up with your primary care physician. If you do not have a primary care physician, see below: [facility] [address] [place] [id number] [address] [id number] [facility] [address] [place] [id number] Sepsis Event Note (ED) - Evaluation Sepsis Screening Result: No Definite Risk - Focused Exam Vital Signs: Vital Signs Temp Pulse Resp BP Pulse Ox 05/28/21 21:17 97.3 F 89 14 131/71 100 - My Orders Last 24 Hours: My Active Orders 05/28/21 22:13 Joce Bandage [RC] ONETIME - Assessment/Plan Last 24 Hours: My Active Orders 05/28/21 22:13 Joce Bandage [RC] ONETIME
--- NOTE | 2021-05-28 22:11 | CR ---
INDICATION: Pain after striking the knee. COMPARISON: 06/22/2020 FINDINGS: The left knee was examined with AP, lateral, oblique, and sunrise views for a total of four views. There is no sign of fracture or dislocation. The medial and lateral compartments are normal in height. There is no sign of a joint effusion. No soft tissue abnormality is seen. Again seen is the mild osteophyte at the insertion of the quadriceps tendon on the anterior superior patella. No additional degenerative change is seen. IMPRESSION: No sign of acute osseous injury. Dictated by Virgilio Holder MD @ 05/28/2021 10:09:[address] Virgilio Holder @ May 28 2021 10:09PM
[2021-05-28 22:27] VITALS: BP 128/72; PULSE 82
== END 2021-05-28 22:28 | disposition home or self-care (01) ==
LOC: MW.ED 21:05
DX: S89.92XA Unspecified injury of left lower leg, initial encounter (principal); E78.00 Pure hypercholesterolemia, unspecified; I10 Essential (primary) hypertension; E11.9 Type 2 diabetes mellitus without complications; E66.9 Obesity, unspecified; Z68.41 Body mass index [BMI] 40.0-44.9, adult; Z88.1 Allergy status to other antibiotic agents; Z88.2 Allergy status to sulfonamides; Z79.899 Other long term (current) drug therapy; W22.09XA Striking against other stationary object, initial encounter
CPT/HCPCS: 73562-26-LT; 73562-LT; 99283-25

== ENCOUNTER 2022-11-12 22:58 | Emergency (ER) | payer BC ==
[2022-11-13] MEDS ORDERED: Acetaminophen 325 MG Tab PO ONE (00:15)
[2022-11-13] MEDS ORDERED: Ibuprofen 600 MG Tab PO ONE (00:15)
[2022-11-13 00:27] LABS: CORONAVIRUS COVID-19 NAA POSITIVE (NEGATIVE); INFLUENZA A NAA NEGATIVE (NEGATIVE); INFLUENZA B NAA NEGATIVE (NEGATIVE); RESPIRATORY SYNCYTIAL VIR NAA NEGATIVE (NEGATIVE)
[2022-11-13] MEDS ORDERED: Fluconazole 150 MG Tab PO ONE (01:16)
[2022-11-13 02:04] VITALS: BP 110/60; PULSE 116
== END 2022-11-13 02:03 | disposition home or self-care (01) ==
LOC: MW.ED 22:58
DX: U07.1 COVID-19 (principal); E78.00 Pure hypercholesterolemia, unspecified; I10 Essential (primary) hypertension; E11.9 Type 2 diabetes mellitus without complications; F17.210 Nicotine dependence, cigarettes, uncomplicated; E66.9 Obesity, unspecified; Z68.42 Body mass index [BMI] 45.0-49.9, adult; Z88.1 Allergy status to other antibiotic agents; Z88.2 Allergy status to sulfonamides; Z88.8 Allergy status to other drugs, medicaments and biological substances; Z79.899 Other long term (current) drug therapy; Z90.49 Acquired absence of other specified parts of digestive tract; Z90.710 Acquired absence of both cervix and uterus
CPT/HCPCS: 0241U; 71046; 81001; 99283; A9270

== ENCOUNTER 2023-04-22 19:38 | Emergency (ER) | payer BC ==
[2023-04-22 19:56] LABS: APPEARANCE,URINE CLOUDY; BILIRUBIN,URINE NEGATIVE (NEGATIVE); COLOR,URINE YELLOW; GLUCOSE,URINE NEGATIVE (NEGATIVE); KETONES,URINE NEGATIVE (NEGATIVE); LEUKOCYTE ESTERASE,URINE SMALL (NEGATIVE); NITRITE,URINE POSITIVE (NEGATIVE); OCCULT BLOOD,URINE MODERATE (NEGATIVE); PH,URINE 5.5 (5.0-8.0); PROTEIN,URINE 100 mg/dL (NEGATIVE); UROBILINOGEN,URINE 0.2 EU/dL (<2.0)
[2023-04-22 20:17] LABS: BACTERIA,URINE 2+ (NEGATIVE); EPITHELIAL CELLS,URINE FEW (NONE-FEW); RBC,URINE TOO NUMEROUS TO CT (0-2/HPF); WBC,URINE TO NUMEROUS TO COUNT (0-5/HPF)
[2023-04-22] MEDS ORDERED: Sodium Chloride 0.9% 10 ML Syringe FLUSH PRN (20:33)
[2023-04-22] MEDS ORDERED: Sodium Chloride 0.9% 2.5 ML Syringe FLUSH PRN (20:33)
[2023-04-22] MEDS ORDERED: Iopamidol 755 MG/ML 500 ML Multipack Bottle IVPUSH ONE (20:54)
[2023-04-22 20:59] LABS: BASOPHILS PERCENT AUTO 0.2 % (0.0-1.5); EOSINOPHILS ABSOLUTE AUTO 0.5 K/uL (0.0-0.7); EOSINOPHILS PERCENT AUTO 4.9 % (0.0-7.0); HEMATOCRIT 41.5 % (36.0-46.0); HEMOGLOBIN 13.7 g/dL (12.0-16.0); LYMPHOCYTES ABSOLUTE AUTO 3.2 K/uL (0.6-2.4); LYMPHOCYTES PERCENT AUTO 31.7 % (16.0-40.0); MEAN CORPUSCULAR VOLUME 90.8 fL (80.0-98.0); MONOCYTES ABSOLUTE AUTO 0.5 K/uL (0.0-0.8); MONOCYTES PERCENT AUTO 5.1 % (0.0-15.0); NEUTROPHILS ABSOLUTE AUTO 5.9 K/uL (1.4-5.7); NEUTROPHILS PERCENT AUTO 58.1 % (48.0-80.0); NRBC ABSOLUTE 0 K/uL; PLATELET COUNT,PLT 239 K/uL (150-400); RED BLOOD CELL COUNT 4.57 M/uL (4.30-5.90); WHITE BLOOD CELL COUNT,WBC 10.13 K/uL (4.0-11.0)
[2023-04-22] MEDS ORDERED: Acetaminophen 500 MG Tab PO STA (21:06)
[2023-04-22] MEDS ORDERED: Piperacillin/Tazobactam 3.375 GM in Sodium Chloride 0.9% 100 ML IV STA (21:06)
[2023-04-22] MEDS ORDERED: Sodium Chloride 0.9% 1,000 ML IV STA ×2 (21:06→22:06)
[2023-04-22 22:00] LABS: A/G RATIO 0.9 (0.9-1.6); ALBUMIN 3.4 g/dL (3.4-5.0); BILIRUBIN TOTAL 0.4 mg/dL (0.2-1.0); CARBON DIOXIDE,CO2 28.8 mmol/L (21.0-32.0); CREATININE 0.7 mg/dL (0.6-1.0); EST CRCL DRUG DOSING (CG) 85.72 mL/min; POTASSIUM,K 4.4 mmol/L (3.5-5.1)
[2023-04-22 23:26] VITALS: BP 129/74; PULSE 91
== END 2023-04-22 23:26 | disposition home or self-care (01) ==
LOC: MW.ED 19:38
DX: N30.01 Acute cystitis with hematuria (principal); E78.00 Pure hypercholesterolemia, unspecified; I10 Essential (primary) hypertension; E11.9 Type 2 diabetes mellitus without complications; E66.9 Obesity, unspecified; Z68.39 Body mass index [BMI] 39.0-39.9, adult; Z88.1 Allergy status to other antibiotic agents; Z88.8 Allergy status to other drugs, medicaments and biological substances; Z88.2 Allergy status to sulfonamides; Z79.899 Other long term (current) drug therapy
CPT/HCPCS: 36415; 74177; 80053; 81001; 81025; 83605; 85025; 87040; 96365; 99284; A9270; J2543; J3490; J7030; Q9967

== ENCOUNTER 2023-06-10 20:20 | Emergency (ER) | payer BC ==
[2023-06-10 21:10] LABS: BILIRUBIN,URINE NEGATIVE (NEGATIVE); COLOR,URINE YELLOW; GLUCOSE,URINE NEGATIVE (NEGATIVE); KETONES,URINE NEGATIVE (NEGATIVE); LEUKOCYTE ESTERASE,URINE TRACE (NEGATIVE); NITRITE,URINE NEGATIVE (NEGATIVE); OCCULT BLOOD,URINE NEGATIVE (NEGATIVE); PH,URINE 5.5 (5.0-8.0); PROTEIN,URINE NEGATIVE (NEGATIVE); UROBILINOGEN,URINE 0.2 EU/dL (<2.0)
[2023-06-10 21:24] LABS: APPEARANCE,URINE HAZY; BACTERIA,URINE FEW (NEGATIVE); EPITHELIAL CELLS,URINE FEW (NONE-FEW); RBC,URINE 0-1 (0-2/HPF); WBC,URINE 0-5 (0-5/HPF)
[2023-06-10 21:36] VITALS: BP 130/80; PULSE 82
== END 2023-06-10 21:36 | disposition home or self-care (01) ==
LOC: MW.ED 20:20
DX: B37.2 Candidiasis of skin and nail (principal); E78.00 Pure hypercholesterolemia, unspecified; I10 Essential (primary) hypertension; E11.9 Type 2 diabetes mellitus without complications; E66.9 Obesity, unspecified; Z72.0 Tobacco use; Z88.1 Allergy status to other antibiotic agents; Z88.2 Allergy status to sulfonamides; Z88.8 Allergy status to other drugs, medicaments and biological substances; Z68.41 Body mass index [BMI] 40.0-44.9, adult
CPT/HCPCS: 81001; 81025; 87086; 99283

== ENCOUNTER 2024-10-28 09:46 | Emergency (ER) | payer BC ==
[2024-10-28] MEDS: Ibuprofen 600 MG Tab PO ONE (10:11)
[2024-10-28] MEDS: Acetaminophen 325 MG Tab PO ONE (10:11)
[2024-10-28] MEDS ORDERED: Sodium Chloride 0.9% 10 ML Syringe FLUSH PRN (10:20)
[2024-10-28] MEDS ORDERED: Sodium Chloride 0.9% 2.5 ML Syringe FLUSH PRN (10:20)
[2024-10-28] MEDS: Sodium Chloride 0.9% 1,000 ML IV STA (10:50)
[2024-10-28 10:52] LABS: BASOPHILS ABSOLUTE AUTO 0.02 K/uL (0.00-0.20); BASOPHILS PERCENT AUTO 0.3 % (0.0-1.0); EOSINOPHILS ABSOLUTE AUTO 0.17 K/uL (0.00-0.45); EOSINOPHILS PERCENT AUTO 2.7 % (0.0-6.0); HEMOGLOBIN 14.2 g/dL (12.0-16.0); IMMATURE GRAN ABSOLUTE AUTO 0.01 K/uL (0.00-0.05); IMMATURE GRAN PERCENT AUTO 0.2 % (0.0-0.4); LYMPHOCYTES ABSOLUTE AUTO 0.46 K/uL (1.00-4.80); LYMPHOCYTES PERCENT AUTO 7.2 % (24.0-44.0); MEAN CORPUSCULAR HEMOGLOBIN 29.7 pg (28.0-32.0); MEAN PLATELET VOLUME 10.9 fL (9.4-12.3); MONOCYTES ABSOLUTE AUTO 0.55 K/uL (0.00-0.80); MONOCYTES PERCENT AUTO 8.6 % (0.0-8.0); PLATELET COUNT,PLT 168 K/uL (150-400); RED BLOOD CELL COUNT 4.78 M/uL (4.10-5.30); WHITE BLOOD CELL COUNT,WBC 6.41 K/uL (3.9-11.3)
[2024-10-28 11:16] LABS: A/G RATIO 1.1 (0.9-1.6); ALBUMIN 3.8 g/dL (3.4-5.0); BILIRUBIN TOTAL 0.7 mg/dL (0.2-1.0); CARBON DIOXIDE,CO2 27.6 mmol/L (21.0-32.0); CREATININE 0.9 mg/dL (0.6-1.0); EST CRCL DRUG DOSING (CG) 65.3 mL/min; PROTEIN TOTAL,TP 7.4 g/dL (6.4-8.2)
[2024-10-28] MEDS: Azithromycin 250 MG Tab PO ONE (12:02)
[2024-10-28 12:27] VITALS: BP 105/51; PULSE 104
== END 2024-10-28 12:30 | disposition home or self-care (01) ==
LOC: MW.ED 09:46
DX: R05.9 Cough, unspecified (principal); R50.9 Fever, unspecified; I10 Essential (primary) hypertension; E78.00 Pure hypercholesterolemia, unspecified; E11.9 Type 2 diabetes mellitus without complications; Z88.1 Allergy status to other antibiotic agents; Z88.2 Allergy status to sulfonamides; Z88.8 Allergy status to other drugs, medicaments and biological substances; Z79.899 Other long term (current) drug therapy; Z90.49 Acquired absence of other specified parts of digestive tract; Z90.710 Acquired absence of both cervix and uterus; Z75.8 Other problems related to medical facilities and other health care
CPT/HCPCS: 36415; 71046; 80053; 85025; 87428; 96360; 99283; A9270; J7030